=== PATIENT | female | born 1985 | race Caucasian/White ===

== ENCOUNTER 2024-02-01 10:08 | Inpatient (IN) ==
[2024-02-01] MEDS ORDERED: LIDOCAINE 1% LOCAL 20 ML VIAL INFIL PRN (10:23)
[2024-02-01] MEDS ORDERED: OXYTOCIN 30 UNITS/NSS 30 UNITS/500 ML BAG IV PRN (10:23)
--- NOTE | 2024-02-01 10:30 | Labor Progress Brief Note ---
Date of Service February 01, 2024 Subjective Contractions Q7m, loss of mucus plug x24 hours, ?ROM as patient has changed maxi pad 4 times today but it seems intermittent / unsure if just mucus with some blood tinge. at 39wk. Assessment & Plan (1) Normal labor: Plan: Admit, labs, epidural on request, expt mgmt of labor. (2) GDM (gestational diabetes mellitus): (3) resulting from in vitro fertilization, antepartum: Physical Exam Genitourinary: /+1 FHT not yet on monitor but +FM Ctx Q7 per pt palp moderate, not on toco yet. Coding Level of Care Code None Diagnoses Normal labor O80; Z37.9 GDM (gestational diabetes mellitus) O24.419 resulting from in vitro fertilization, antepartum O09.819
--- NOTE | 2024-02-01 10:45 | History & Physical Report ---
Date of Service February 01, 2024 Assessment & Plan (1) Normal labor: (2) GDM (gestational diabetes mellitus): (3) Supervision of elderly primigravida: Plan Admit to L&D Pitocin augmentation if needed monitor Category 1 Epidural when requested. GBS negative Anticipate vaginal . History of Present Illness Primary Care Provider: FILOEMNA Chu 38 y/o at 39 weeks confirmed. Here due to active labor. Complications with this include IVF, AMA, hyperthyroidism and GDM diet controlled. Has been attending OB appointments regularly. Currently taking no medications. GBS negative, Rubella Immune, BTG: B+ Contractions: every 7 min Fluid or Blood loss: blood tinged, unsure of fluid loss Movement: active FHR baseline 130, moderate variability, accelerations present, decelerations absent Lab Results OB Labs: Blood Type B Positive 07/13/23 Antibody Screen NEGATIVE 07/13/23 Hemoglobin 10.5 g/dl (12.0-16.0) L 11/24/23 Hematocrit 32.1 % (37.0-47.0) L 11/24/23 Mean Corpuscular Volume 83.5 fL (80.0-100.0) 07/13/23 Platelet Count 284 K/uL (130-400) 07/13/23 Rubella IgG Antibody Immune (Immune) 07/13/23 Rapid Plasma Reagin Nonreactive (Nonreactive) 07/13/23 Hepatitis B Surface Antigen. NON-REACTIVE (NON-REACTIVE) 07/13/23 Hepatitis C Antibody (EIA) NON-REACTIVE (NON-REACTIVE) 07/13/23 HIV (1&2) Ag and Ab Confirmation NON-REACTIVE (NON-REACTIVE) 07/13/23 Glucose 1 Hour 50 gm Load 158 mg/dl (70-130) H 08/24/23 OB Optional Labs: Chlamydia trachomatis RNA Not Detected (NotDetected) 07/13/23 Neisseria gonorrhoeae RNA Not Detected (NotDetected) 07/13/23 Thyroid Stimulating Hormone (TSH) 0.324 uIu/ml (0.300-4.500) 08/12/21 Allergies Allergy/AdvReac Type Severity Reaction Status Date / Time benzonatate Allergy hives Verified 01/31/24 15:56 [From Tessalon Perles] ciprofloxacin [From Cipro] AdvReac thrush Verified 01/31/24 15:56 Home Medications Medication Instructions Recorded Confirmed Type prenat.vits,chip,bax-lguj-tqoxf 1 tab PO DAILY 08/04/19 02/01/24 History needle (disp) 25 gauge 25 gauge x #90 ea 10/13/22 01/31/24 Rx 1" (BD PrecisionGlide Non-Sterile) coenzyme Q10 100 mg capsule 100 mg PO DAILY 10/31/22 02/01/24 History (CoQ-10) fluoxetine 10 mg capsule (Prozac) 10 mg PO DAILY #90 caps 09/04/23 02/01/24 Rx breast pump #1 ea 11/15/23 01/31/24 Rx pantoprazole 20 mg tablet,delayed 20 mg PO DAILY #90 tabs 12/06/23 02/01/24 Rx release cyanocobalamin (vitamin B-12) 1,000 mcg subcut . MONTHLY #10 mL 12/10/23 02/01/24 Rx 1,000 mcg/mL injection solution levocetirizine 5 mg tablet (Xyzal) 5 mg PO DAILY 02/01/24 02/01/24 History Patient History Medical History GERD without esophagitis History of abnormal cervical Pap smear History of thyroid cyst Surgical History History of esophagogastroduodenoscopy (EGD) History of loop electrical excision procedure (LEEP) History of placement of ear tubes S/P cholecystectomy S/P wisdom tooth extraction Family History Grandfather (Paternal) Moises's disease Myocardial infarction Prostate cancer Grandmother (Paternal) Breast cancer Family/Other Breast cancer Father Colorectal cancer Denies family history of Ovarian cancer Social History (Updated 11/13/23 @ 09:01 by KRYSTYNA Callejas) Smoking Status: Former smoker Tobacco Type: Cigarettes and E-cigarettes / Vaping Age Quit Using Tobacco: 29; Cigarettes Per Day: 1/2 ppd- quit at 29; Second Hand Exposure: No; Do You Dip or Chew Tobacco: No; Hx Alcohol Use: No Hx Substance Use: No Preferred Language: Swedish Communication Ability: Effective Visual Impairment: No Limitations Hearing Ability: Normal Rn Women Services Required: No Beliefs That Will Affect Care: None marital status: single marital status details: Sravan (40) [phone] Current Living Situation: Spouse Current Living Situation Comment: Lives at home with Boyfriend Tera and 2 dogs. current occupational status: employed current occupation: contract analyst. How many Children do You have: 0 Other Information That Helps Us Care for You: No Feels Safe at Home: Yes Safety Concerns: Feels Safe At This Time Childhood Exposure to Second-Hand Smoke: No Diet: regular Diet Comment: regular caffeine: Yes (limiting ) during the past year weight has: remained stable Dental Care, Regularly: Yes Physical Activity Frequency: 3-4 Times per Week Seatbelt Use: always Sunscreen Use: Yes Assistive Devices: None Review of Systems All systems reviewed & are unremarkable except as noted in HPI & below Physical Exam Physical Exam: General: patient resting comfortably, NAD, non-toxic in appearance, AA&O x 4, answers questions appropriately. Skin: warm, dry, intact HEENT: NC/AT, anicteric sclera, conjunctiva without injection, moist mucus membranes Heart: +S1/S2, regular, no m/r/g Lungs: equal air entry bilaterally, no rales/rhonchi/wheezes Abd: +BS, soft, NT/ND, gravid uterus Cervical: 8/100/+1, uterus mod. anterior Ext: warm, no clubbing/cyanosis or edema Neuro: nonfocal, patient AA&O x 4, speech intact, no facial droop, moving all extremities on command. Supervising Physician Co-Signing Physician Notes Resident Physician Supervision Note: I interviewed and examined the patient. Discussed with Dr. Rick Cano and agree with findings and plan as documented in the note. Any exceptions or clarifications are listed here: 38yo @ 39 0/7, spontaneous labor. 8cm on arrival. Does not desire epidural, is comfortable. FHT Cat 1 Platea Q 5 Documented By: Yissel Batista DO Resident Activity Tracking Resident Involvement: Resident Care Provided Care Provided: OB Delivery
[2024-02-01 10:57] LABS: Hematocrit (blood only) 35.4 % (37.0-47.0); Hemoglobin 11.5 g/dl (12.0-16.0); Mean Corpuscular Hemoglobin 26.1 pg (25.0-34.0); Mean Corpuscular Hgb Conc 32.5 g/dL (32.0-36.0); Mean Corpuscular Volume 80.5 fL (80.0-100.0); Mean Platelet Volume 11.2 fL (9.4-12.4); Platelet Count 221 K/uL (130-400); RDW Coefficient of Variation 15.7 % (11.5-14.5); RDW Standard Deviation 45.6 fL (36.4-46.3); White Blood Count 13.79 K/ul (4.8-10.8)
--- NOTE | 2024-02-01 14:23 | Anesthesiology Consultation ---
Date of Service February 01, 2024 Assessment & Plan Chart Review Chart Review: Acceptable Risk for Surgery and Patient NOT seen in Pre Admission Testing Consults Requested none ASA ASA2 Proposed Anesthesia Anesthesia Type: Labor Epidural and CSE History Height/Weight Height: 5 ft 6 in Weight: 106.141 kg Allergies Allergy/AdvReac Type Severity Reaction Status Date / Time benzonatate Allergy hives Verified 01/31/24 15:56 [From Tessalon Perles] ciprofloxacin [From Cipro] AdvReac thrush Verified 01/31/24 15:56 Medications Home Medications Medication Instructions Recorded Confirmed Last Taken prenat.vits,chip,def-sivr-jnldg 1 tab PO DAILY 08/04/19 02/01/24 02/01/24 needle (disp) 25 gauge 25 gauge x #90 ea 10/13/22 01/31/24 Unknown 1" (BD PrecisionGlide Non-Sterile) coenzyme Q10 100 mg capsule 100 mg PO DAILY 10/31/22 02/01/24 02/01/24 (CoQ-10) fluoxetine 10 mg capsule (Prozac) 10 mg PO DAILY #90 caps 09/04/23 02/01/24 02/01/24 breast pump #1 ea 11/15/23 01/31/24 Unknown pantoprazole 20 mg tablet,delayed 20 mg PO DAILY #90 tabs 12/06/23 02/01/24 02/01/24 release cyanocobalamin (vitamin B-12) 1,000 mcg subcut . MONTHLY #10 mL 12/10/23 02/01/24 Unknown 1,000 mcg/mL injection solution levocetirizine 5 mg tablet (Xyzal) 5 mg PO DAILY 02/01/24 02/01/24 02/01/24 Past Medical History Medical History GERD without esophagitis History of abnormal cervical Pap smear History of thyroid cyst morbid obesity Exercise / Class Metabolic Activity II 4-5 Yardwork/Stairs/Walk up hill Past Family History Family History Grandfather (Paternal) Moises's disease Myocardial infarction Prostate cancer Grandmother (Paternal) Breast cancer Family/Other Breast cancer Father Colorectal cancer Denies family history of Ovarian cancer Past Surgical History Surgical History History of esophagogastroduodenoscopy (EGD) History of loop electrical excision procedure (LEEP) History of placement of ear tubes S/P cholecystectomy S/P wisdom tooth extraction Past Anesthesia History No Hx of Anesthesia Complications and No Family Hx of Anesthesia Complications History of PONV No Hx of PONV and No Hx of Motion Sickness Social History Smoking Status: Former smoker tobacco type: e-cigarettes Smoking cigarettes per day: 1/2 ppd- quit at 29 Do You Dip or Chew Tobacco: No Hx Alcohol Use: No Hx Substance Use: No Physical Exam Vital Signs Last Vital Signs Temp 37.2 C 02/01/24 11:00 Pulse 80 02/01/24 14:19 Resp 20 02/01/24 13:03 BP 124/70 02/01/24 11:03 Pulse Ox 99 02/01/24 14:19 Testing Laboratory Results 02/01/24 10:37
[2024-02-01] MEDS: fentaNYL citrate PF 100 MCG/2 ML VIAL ONE (15:06)
[2024-02-01] MEDS: BUPIVACAINE 0.25% PF 30 ML VIAL ONE (15:07)
[2024-02-01] MEDS: LIDOCAINE 2%/EPINEPHRINE 1:200,000 20 ML PF ONE (15:15)
[2024-02-01] MEDS: fentANYL 2 MCG/ML BUPIVacaine 0.125%-NSS 100ML BAG ONE (15:16)
[2024-02-01] MEDS ORDERED: NALOXONE HCL 0.4 MG/1 ML VIAL/CARP IV PRN (15:22)
[2024-02-01] MEDS ORDERED: BUPIVACAINE 0.25% PF 30 ML VIAL EPI PRN (15:22)
[2024-02-01] MEDS ORDERED: PROMETHAZINE HCL 6.25 MG in SODIUM CHLORIDE 0.9% 50 ML IV PRN (15:22)
[2024-02-01] MEDS ORDERED: ePHEDrine sulfate 50 MG/ML AMP IV PRN (15:22)
[2024-02-01] MEDS ORDERED: NALBUPHINE HCL 5 MG in SYRINGE 0 ML IV PRN (15:22)
[2024-02-01] MEDS ORDERED: ONDANSETRON INJ 2 MG/ML 2 ML VIAL IV PRN (15:22)
[2024-02-01] MEDS ORDERED: fentaNYL citrate PF 100 MCG/2 ML VIAL EPI PRN (15:22)
[2024-02-01] MEDS ORDERED: fentANYL 2 MCG/ML BUPIVacaine 0.125%-NSS 100ML BAG EPI PRN (15:22)
[2024-02-01] MEDS ORDERED: diphenhydrAMINE 50 MG/ML VIAL IV PRN (15:22)
[2024-02-01] MEDS ORDERED: LIDOCAINE 2% MPF LOCAL 5 ML VIAL EPI PRN (15:22)
[2024-02-01] MEDS ORDERED: NALOXONE HCL 1 MG in SODIUM CHLORIDE 0.9% 1,000 ML IV PRN (15:22)
[2024-02-01] MEDS ORDERED: SODIUM CHLORIDE 0.9% PF INJ 10 ML VIAL EPI PRN (15:22)
[2024-02-01] MEDS ORDERED: ROPIVACAINE 0.5% PF 5 MG/ML 20 ML VIAL EPI PRN (15:22)
--- NOTE | 2024-02-01 15:34 | Labor Progress Brief Note ---
Date of Service February 01, 2024 Subjective Patient progressed to complete cervical dilation, attempted to push, then felt large amount of pressure and desired epidural. She has now rec'd epidural; more comfortable. FHT 140, mod immanuel, +accels, one 2 min deceleration - not recurrent. Ctx Q 2 Will labor down, when she feels urge to push will plan to begin pushing again. Assessment & Plan Admission and Anticipated Discharge Date Admission Date: February 01, 2024 Results & Data Vital Signs (Past 12 Hours) Vital Signs Temp Pulse Resp BP Pulse Ox 02/01/24 15:29 73 100 02/01/24 15:28 75 113/58 L 02/01/24 15:24 73 100 02/01/24 15:22 81 118/56 L 02/01/24 15:20 76 115/56 L 02/01/24 15:19 100 02/01/24 15:19 81 02/01/24 15:19 77 112/55 L 02/01/24 15:17 76 90/48 L 02/01/24 15:15 82 02/01/24 15:15 94/50 L 02/01/24 15:15 100 H 89/50 L 02/01/24 15:14 80 100 02/01/24 15:13 85 99/46 L 02/01/24 15:11 87 109/56 L 02/01/24 15:09 89 97 02/01/24 15:08 80 129/61 02/01/24 15:06 86 129/59 L 02/01/24 15:04 88 125/64 98 02/01/24 15:02 78 124/58 L 02/01/24 15:00 88 128/60 02/01/24 14:59 100 H 99 02/01/24 14:58 88 136/61 02/01/24 14:54 109 H 87 L 02/01/24 14:49 82 99 02/01/24 14:46 95 H 88 L 02/01/24 14:44 79 97 02/01/24 14:39 88 99 02/01/24 14:34 107 H 98 02/01/24 14:29 75 97 02/01/24 14:24 75 97 02/01/24 14:19 80 99 02/01/24 14:14 83 99 02/01/24 13:03 20 02/01/24 11:03 80 124/70 02/01/24 11:00 37.2 C 80 16 124/70 Coding Level of Care Code None
[2024-02-01] MEDS: SODIUM CHLORIDE 0.9% PF INJ 10 ML VIAL ONE (18:29)
[2024-02-01] MEDS: ePHEDrine sulfate 50 MG/ML AMP ONE (18:29)
[2024-02-01] MEDS: SODIUM CHLORIDE 0.9% PF INJ 10 ML VIAL EPI STA (18:31)
[2024-02-01] MEDS: BUPIVACAINE 0.25% PF 30 ML VIAL EPI STA (18:31)
[2024-02-01] MEDS: LIDOCAINE 2%/EPINEPHRINE 1:200,000 20 ML PF EPI STA (18:31)
[2024-02-01] MEDS: LACTATED RINGER'S 1,000 ML IV PRN (18:47)
[2024-02-01] MEDS: fentaNYL citrate PF 100 MCG/2 ML VIAL EPI STA (19:05)
--- NOTE | 2024-02-01 19:29 | Labor Progress Brief Note ---
Date of Service February 01, 2024 Subjective Comfortable with epidural; got a much-needed nap and feels refreshed and able to push now. Not feeling ctx. Assessment & Plan (1) Normal labor: Plan: Augment with pitocin now. Second stage can start but will be more effective with some augmentation. Admission and Anticipated Discharge Date Admission Date: February 01, 2024 Physical Exam Genitourinary: 10/100/+2 Clear LOF [place] not tracing well; palpation correlates mild to moderate ctx with occasional subtle bump, likely indicating ctx are present, Q3-4, but not strong. Results & Data Vital Signs (Past 12 Hours) Vital Signs Temp Pulse Resp BP Pulse Ox 02/01/24 19:24 127 H 98 02/01/24 19:19 88 125/57 L 100 02/01/24 19:14 92 H 100 02/01/24 19:12 18 02/01/24 19:12 99.9 F H 18 02/01/24 19:09 87 100 02/01/24 19:04 99 02/01/24 19:04 93 H 02/01/24 19:04 95 H 132/63 02/01/24 18:59 88 100 02/01/24 18:54 99 H 18 99 02/01/24 18:49 94 H 131/59 L 99 02/01/24 18:44 95 H 99 02/01/24 18:39 84 99 02/01/24 18:35 96 H 142/70 H 02/01/24 18:34 92 H 100 02/01/24 18:29 92 H 99 02/01/24 18:24 86 99 02/01/24 18:19 82 126/65 100 02/01/24 18:14 93 H 100 02/01/24 18:09 92 H 100 02/01/24 18:04 89 138/75 100 02/01/24 17:59 93 H 99 02/01/24 17:54 18 100 02/01/24 17:54 86 02/01/24 17:54 86 92 02/01/24 17:50 83 126/61 02/01/24 17:49 86 100 02/01/24 17:44 83 100 02/01/24 17:39 93 H 99 02/01/24 17:35 88 127/69 02/01/24 17:34 88 100 02/01/24 17:30 100 H 92 02/01/24 17:29 89 99 02/01/24 17:24 90 100 02/01/24 17:21 85 131/72 02/01/24 17:19 82 100 02/01/24 17:14 83 100 02/01/24 17:09 82 99 02/01/24 17:04 99 02/01/24 17:04 93 H 02/01/24 17:04 90 127/58 L 02/01/24 17:00 97.5 F L 82 113/77 02/01/24 16:59 86 100 02/01/24 16:54 92 H 18 100 02/01/24 16:53 95 H 128/60 02/01/24 16:49 103 H 135/60 100 02/01/24 16:44 92 H 100 02/01/24 16:43 93 H 116/69 02/01/24 16:39 85 18 99 02/01/24 16:38 81 113/55 L 02/01/24 16:34 81 98 02/01/24 16:33 88 106/56 L 02/01/24 16:29 80 98 02/01/24 16:28 77 103/55 L 02/01/24 16:24 98 02/01/24 16:24 76 02/01/24 16:24 81 18 108/54 L 02/01/24 16:19 84 98 02/01/24 16:18 87 108/56 L 02/01/24 16:14 77 98 02/01/24 16:13 85 111/54 L 02/01/24 16:09 79 100 02/01/24 16:08 73 18 113/56 L 02/01/24 16:04 99 02/01/24 16:04 77 02/01/24 16:04 75 115/59 L 02/01/24 15:59 100 02/01/24 15:59 78 02/01/24 15:59 75 120/55 L 02/01/24 15:54 77 100 02/01/24 15:53 75 18 118/66 02/01/24 15:49 82 20 116/55 L 100 02/01/24 15:44 81 18 115/53 L 100 02/01/24 15:39 79 18 100/52 L 99 02/01/24 15:34 82 100 02/01/24 15:33 80 18 112/55 L 02/01/24 15:29 73 100 02/01/24 15:28 75 113/58 L 02/01/24 15:24 73 100 02/01/24 15:22 81 118/56 L 02/01/24 15:20 76 115/56 L 02/01/24 15:19 100 02/01/24 15:19 81 02/01/24 15:19 77 112/55 L 02/01/24 15:17 76 90/48 L 02/01/24 15:15 82 02/01/24 15:15 94/50 L 02/01/24 15:15 100 H 89/50 L 02/01/24 15:14 80 100 02/01/24 15:13 85 99/46 L 02/01/24 15:11 87 109/56 L 02/01/24 15:09 89 97 02/01/24 15:08 80 129/61 02/01/24 15:06 86 129/59 L 02/01/24 15:04 88 125/64 98 02/01/24 15:02 78 124/58 L 02/01/24 15:00 98.1 F 88 128/60 02/01/24 14:59 100 H 99 02/01/24 14:58 88 136/61 02/01/24 14:54 109 H 87 L 02/01/24 14:49 82 99 02/01/24 14:46 95 H 88 L 02/01/24 14:44 79 97 02/01/24 14:39 88 99 02/01/24 14:34 107 H 98 02/01/24 14:29 75 97 02/01/24 14:24 75 97 02/01/24 14:19 80 99 02/01/24 14:14 83 99 02/01/24 13:03 20 02/01/24 11:03 80 124/70 02/01/24 11:00 99.0 F 80 16 124/70 Coding Level of Care Code None Diagnoses Normal labor O80; Z37.9
[2024-02-01] MEDS: OXYTOCIN 30 UNITS/NSS 30 UNITS/500 ML BAG IV PRN (19:46)
--- NOTE | 2024-02-01 23:47 | Labor Progress Brief Note ---
Date of Service February 01, 2024 Subjective Patient pushing for several hours. Some descent, but marked molding and I'm unconvinced there is as much descent as there is pointing-forward of the scalp. Further, even during pushes it is easy to displace the head, and copious amniotic fluid is being extruded during pushes. Mom becoming exhausted and unsure how much longer she can push well. FHT 160 mod immanuel no acc +decels with pushes c/w 2nd stage. Discussion held with mom/FOB/patient's mother at bedside. This is an IVF with which the patient wishes to take no extraordinary risks in order to have a vaginal delivery. She is GDM with a larger AC than EFW percentile, and therefore I have reservations about the safety of operative vaginal delivery, as there is elevated risk of dystocia. We reviewed possibilities including continued pushing for some defined time, moving directly to , or attempt of OVD though this was not recommended above the other options. Patient clearly prefers to move to without any further pushing. Consent completed line by line with patient's mom and FOB present. All questions answered. Second surgeon called to assist. Anesthesia and nursery team notified. Assessment & Plan Admission and Anticipated Discharge Date Admission Date: February 01, 2024 Results & Data Vital Signs (Past 12 Hours) Vital Signs Temp Pulse Resp BP Pulse Ox 02/01/24 23:39 104 H 98 02/01/24 23:34 102 H 141/76 H 98 02/01/24 23:29 89 99 02/01/24 23:24 94 H 99 02/01/24 23:20 99 H 133/85 02/01/24 23:19 102 H 99 02/01/24 23:14 100 H 94 02/01/24 23:09 86 98 02/01/24 23:05 100 H 134/62 91 02/01/24 23:04 104 H 97 02/01/24 22:59 106 H 93 02/01/24 22:54 84 98 02/01/24 22:53 102 H 91 02/01/24 22:50 104 H 170/89 H 02/01/24 22:49 106 H 98 02/01/24 22:48 99.5 F 02/01/24 22:47 106 H 89 L 02/01/24 22:44 80 98 02/01/24 22:39 105 H 87 L 02/01/24 22:35 74 120/59 L 02/01/24 22:34 78 98 02/01/24 22:29 80 99 02/01/24 22:24 115 H 92 02/01/24 22:20 78 115/57 L 02/01/24 22:19 96 H 92 02/01/24 22:14 99 02/01/24 22:14 86 02/01/24 22:14 100 H 92 02/01/24 22:09 80 99 02/01/24 22:07 107 H 88 L 02/01/24 22:04 87 120/60 98 02/01/24 21:59 95 H 98 02/01/24 21:57 105 H 92 02/01/24 21:54 83 99 02/01/24 21:51 89 02/01/24 21:51 103 H 143/64 H 93 02/01/24 21:49 90 100 02/01/24 21:44 96 H 100 02/01/24 21:39 83 100 02/01/24 21:36 109 H 92 02/01/24 21:34 102 H 139/65 98 02/01/24 21:29 88 100 02/01/24 21:28 99 H 89 L 02/01/24 21:24 92 H 100 02/01/24 21:22 116 H 82 L 02/01/24 21:19 100 02/01/24 21:19 101 H 02/01/24 21:19 93 H 142/70 H 02/01/24 21:14 101 H 99 02/01/24 21:10 108 H 90 02/01/24 21:09 108 H 97 02/01/24 21:05 93 H 134/66 02/01/24 21:04 125 H 100 02/01/24 21:00 114 H 89 L 02/01/24 20:59 107 H 99 02/01/24 20:54 116 H 92 02/01/24 20:49 86 L 02/01/24 20:49 94 H 02/01/24 20:49 92 H 90 02/01/24 20:44 89 99 02/01/24 20:43 122 H 91 02/01/24 20:39 102 H 99 02/01/24 20:36 108 H 131/69 02/01/24 20:34 109 H 100 02/01/24 20:29 99 H 99 02/01/24 20:24 107 H 99 02/01/24 20:21 86 135/63 02/01/24 20:19 99 H 99 02/01/24 20:14 91 H 99 02/01/24 20:09 98 H 100 02/01/24 20:05 93 H 170/71 H 02/01/24 20:04 105 H 98 02/01/24 20:03 118 H 93 02/01/24 19:59 103 H 100 02/01/24 19:54 119 H 100 02/01/24 19:53 98 H 91 02/01/24 19:51 100 H 145/82 H 02/01/24 19:49 88 100 02/01/24 19:44 91 H 99 02/01/24 19:39 102 H 100 02/01/24 19:34 92 H 127/62 100 02/01/24 19:29 83 100 02/01/24 19:24 127 H 98 02/01/24 19:19 88 125/57 L 100 02/01/24 19:14 92 H 100 02/01/24 19:12 18 02/01/24 19:12 99.9 F H 18 02/01/24 19:09 87 100 02/01/24 19:04 99 02/01/24 19:04 93 H 02/01/24 19:04 95 H 132/63 02/01/24 18:59 88 100 02/01/24 18:54 99 H 18 99 02/01/24 18:49 94 H 131/59 L 99 02/01/24 18:44 95 H 99 02/01/24 18:39 84 99 02/01/24 18:35 96 H 142/70 H 02/01/24 18:34 92 H 100 02/01/24 18:29 92 H 99 02/01/24 18:24 86 99 02/01/24 18:19 82 126/65 100 02/01/24 18:14 93 H 100 02/01/24 18:09 92 H 100 02/01/24 18:04 89 138/75 100 02/01/24 17:59 93 H 99 02/01/24 17:54 18 100 02/01/24 17:54 86 02/01/24 17:54 86 92 02/01/24 17:50 83 126/61 02/01/24 17:49 86 100 02/01/24 17:44 83 100 02/01/24 17:39 93 H 99 02/01/24 17:35 88 127/69 02/01/24 17:34 88 100 02/01/24 17:30 100 H 92 02/01/24 17:29 89 99 02/01/24 17:24 90 100 02/01/24 17:21 85 131/72 02/01/24 17:19 82 100 02/01/24 17:14 83 100 02/01/24 17:09 82 99 02/01/24 17:04 99 02/01/24 17:04 93 H 02/01/24 17:04 90 127/58 L 02/01/24 17:00 97.5 F L 82 113/77 02/01/24 16:59 86 100 02/01/24 16:54 92 H 18 100 02/01/24 16:53 95 H 128/60 02/01/24 16:49 103 H 135/60 100 02/01/24 16:44 92 H 100 02/01/24 16:43 93 H 116/69 02/01/24 16:39 85 18 99 02/01/24 16:38 81 113/55 L 02/01/24 16:34 81 98 02/01/24 16:33 88 106/56 L 02/01/24 16:29 80 98 02/01/24 16:28 77 103/55 L 02/01/24 16:24 98 02/01/24 16:24 76 02/01/24 16:24 81 18 108/54 L 02/01/24 16:19 84 98 02/01/24 16:18 87 108/56 L 02/01/24 16:14 77 98 02/01/24 16:13 85 111/54 L 02/01/24 16:09 79 100 02/01/24 16:08 73 18 113/56 L 02/01/24 16:04 99 02/01/24 16:04 77 02/01/24 16:04 75 115/59 L 02/01/24 15:59 100 02/01/24 15:59 78 02/01/24 15:59 75 120/55 L 02/01/24 15:54 77 100 02/01/24 15:53 75 18 118/66 02/01/24 15:49 82 20 116/55 L 100 02/01/24 15:44 81 18 115/53 L 100 02/01/24 15:39 79 18 100/52 L 99 02/01/24 15:34 82 100 02/01/24 15:33 80 18 112/55 L 02/01/24 15:29 73 100 02/01/24 15:28 75 113/58 L 02/01/24 15:24 73 100 02/01/24 15:22 81 118/56 L 02/01/24 15:20 76 115/56 L 02/01/24 15:19 100 02/01/24 15:19 81 02/01/24 15:19 77 112/55 L 02/01/24 15:17 76 90/48 L 02/01/24 15:15 82 02/01/24 15:15 94/50 L 02/01/24 15:15 100 H 89/50 L 02/01/24 15:14 80 100 02/01/24 15:13 85 99/46 L 02/01/24 15:11 87 109/56 L 02/01/24 15:09 89 97 02/01/24 15:08 80 129/61 02/01/24 15:06 86 129/59 L 02/01/24 15:04 88 125/64 98 02/01/24 15:02 78 124/58 L 02/01/24 15:00 98.1 F 88 128/60 02/01/24 14:59 100 H 99 02/01/24 14:58 88 136/61 02/01/24 14:54 109 H 87 L 02/01/24 14:49 82 99 02/01/24 14:46 95 H 88 L 02/01/24 14:44 79 97 02/01/24 14:39 88 99 02/01/24 14:34 107 H 98 02/01/24 14:29 75 97 02/01/24 14:24 75 97 02/01/24 14:19 80 99 02/01/24 14:14 83 99 02/01/24 13:03 20 Coding Level of Care Code None
[2024-02-01] MEDS ORDERED: LIDOCAINE 2%/EPINEPHRINE 1:200,000 20 ML PF ONE (23:51)
[2024-02-01] MEDS ORDERED: KETOROLAC 30 MG/ML VIAL ONE (23:51)
[2024-02-01] MEDS ORDERED: OXYTOCIN 10 UNITS/ML VIAL ONE (23:51)
[2024-02-01] MEDS ORDERED: ONDANSETRON INJ 2 MG/ML 2 ML VIAL ONE (23:51)
[2024-02-02] MEDS: AZITHROMYCIN 500 MG in DEXTROSE 5% 250 ML IV ONE (00:07)
[2024-02-02] MEDS: CITRIC ACID/SODIUM CITRATE 15 ML UDC PO SCH (00:07)
[2024-02-02] MEDS: LACTATED RINGER'S 1,000 ML IV SCH ×2 (00:34→06:45)
[2024-02-02] MEDS: ceFAZolin 3000MG 3,000 MG/72.5 ML BAG IV ONE ×2 (00:34→19:22)
[2024-02-02] MEDS ORDERED: MoRPHine SULFATE PF 1 MG/ML 10 ML AMP/VIAL ONE (00:46)
[2024-02-02] MEDS ORDERED: LACTATED RINGER'S 500 ML IV PRN (00:53)
[2024-02-02] MEDS ORDERED: ONDANSETRON INJ 2 MG/ML 2 ML VIAL IV PRN ×2 (00:53→18:53)
[2024-02-02] MEDS ORDERED: ACETAMINOPHEN 1,000 MG/100 ML VIAL IV PRN (00:53)
[2024-02-02] MEDS ORDERED: NALBUPHINE HCL 5 MG in SYRINGE 0 ML IV PRN (00:53)
[2024-02-02] MEDS ORDERED: PROMETHAZINE HCL 6.25 MG in SODIUM CHLORIDE 0.9% 50 ML IV PRN (00:53)
[2024-02-02] MEDS ORDERED: NALOXONE HCL 1 MG in SODIUM CHLORIDE 0.9% 1,000 ML IV PRN (00:53)
[2024-02-02] MEDS ORDERED: NALOXONE HCL 0.4 MG/1 ML VIAL/CARP IV PRN (00:53)
[2024-02-02] MEDS ORDERED: HYDROmorphone INJ 0.5 MG/0.5 ML SYR IV PRN (00:53)
[2024-02-02] MEDS ORDERED: NALOXONE HCL 0.08 MG in SYRINGE 1.8 ML IV PRN (00:53)
[2024-02-02] MEDS ORDERED: ePHEDrine sulfate 50 MG/ML AMP IV PRN (00:53)
[2024-02-02] MEDS ORDERED: DC INTRASPINAL MORPHINE SCH (01:00)
[2024-02-02] MEDS ORDERED: NO NARCOTICS OR SEDATIVES SCH (01:00)
[2024-02-02] MEDS ORDERED: PHENYLEPHRINE 100MCG/ML 10ML SYR IV ONE ×2 (01:05→04:52)
[2024-02-02] MEDS ORDERED: ePHEDrine sulfate 50 MG/5 ML SYR ONE (01:05)
[2024-02-02] MEDS ORDERED: METHYLENE BLUE 0.5% 10 ML VIAL ONE (01:09)
[2024-02-02] MEDS ORDERED: BENZOCAINE 20% SPRY 85 APPLN/85 GM CAN EXT PRN (01:41)
[2024-02-02] MEDS ORDERED: MAGNESIUM HYDROXIDE SUSP 30 ML UDC PO PRN (01:41)
[2024-02-02] MEDS ORDERED: SENNA 8.6 MG TAB PO PRN (01:41)
[2024-02-02] MEDS ORDERED: HYDROCORTISONE ACETATE 25 MG SUPP PR PRN (01:41)
--- NOTE | 2024-02-02 01:46 | Operative Report ---
PG Post Operative Report Pre & Post Diagnosis Operation Date: 02/02/24 00:10 Pre-Op Diagnosis: 1. Intrauterine pregnacy at term 2. Gestational Diabetes 3. IVF 4. Failure to descend Post-Op Diagnosis: 1. Intrauterine pregnacy at term 2. Gestational Diabetes 3. IVF 4. Failure to descend I identified the patient and participated in the time-out.: Yes Procedure Operation Date: 02/02/24 00:10 Actual Procedures Primary Low Transverse Section with T-incision and L cervical extension, repaired in 2 layers Surgeon Thea Barrera MD Spirits Model Lynne Estimated Blood Loss 600 Findings Consistent with Post-Op Diagnosis Specimens Placenta, Cord blood Drains Shirley Anesthesia Type L&D Only Epidural Exists Complications none Disposition Accompanied Patient To Recovery: Yes Disposition: L&D Description of Procedure The patient was placed operating table in the supine position with a leftward tilt. She was prepped and draped in standard sterile fashion. The anesthetic was tested and found to be adequate. A time-out was held, identifying correct patient, procedure, positioning and preoperative antibiotics. There were no concerns. A Pfannenstiel skin incision was made with a knife and taken down to the underlying layer of fascia. The fascia was incised in the midline with the knife and taken out laterally with scissors. The superior edge of the fascial incision was grasped, elevated and dissected off the underlying rectus both superiorly and inferiorly. The muscles were bluntly in the midline. The peritoneum was entered bluntly. The incision was then stretched. An Gonzalo retractor was placed. The bladder retractor was placed. The vesicouterine peritoneum was identified, entered with scissors and taken out laterally with scissors. The bladder flap was created digitally. A hysterotomy incision was created transversely in the lower uterine segment, final entry being accomplished in a blunt manner with the long distance billing operator's fingers. Clear amniotic fluid was encountered. The long distance billing operator's hand was used to elevate the head to the hysterotomy. The head was initially very difficult to deliver, and uterine contraction occurring during this attempt further increased the challenge of elevating the head through the hysterotomy. A bandage scissor was used to create a T-incision vertically in the midline. The head then was able to be elevated and was delivered using mild fundal pressure, and the shoulders and body followed without difficulty. The cord was clamped and cut and the was then handed off to the awaiting feed mill operator. Cord blood was obtained. The placenta was Manually extracted. The uterus was exteriorized and cleared of all clot and debris with moistened laparotomy sponges. The hysterotomy incision was explored and all apices were identified with Allis clamps. The L cervical extension was identified and repaired first. The vertical extension was repaired next. The transverse hysterotomy was then repaired in two layers, the first in a running locked layer, the second in an imbricating layer. The ovaries and tubes were seen to be normal bilaterally. There was a fibroid in the anterior wall of the uterus near the base of, and distorting, the L round ligament. The uterus was gently replaced in the abdomen, and the gutters were cleared of clot and debris. Methylene-blue stained sterile saline was used to backfill the bladder, which was seen to fill normally without leakage. A final inspection of the hysterotomy revealed good hemostasis. The rectus muscles were allowed to reapproximate naturally. The fascia was then reapproximated with 1 Vicryl in a running nonlocked manner. The fascia was examined and found to be free of defect following closure. The subcutaneous tissue was copiously irrigated and reapproximated with 0-chromic, then the skin edges were closed with 4-0 monocryl in a subcuticular fashion. A dermabond dressing was applied. The shirley was found to be draining [id number] urine at completion of the procedure. I attest to the content of the Intraoperative Record and any orders documented therein. Any exceptions are noted below. I attest to the content of the Intraoperative Record and any orders documented therein. Any exceptions are noted below. OB Procedure Charges 10530
--- NOTE | 2024-02-02 02:22 | Anesthesiology Progress Note ---
Date of Service February 02, 2024 Anesthesia Post Procedure Vital Signs Vital Signs: Temp Pulse Resp BP Pulse Ox 02/02/24 02:18 102 H 99 02/02/24 02:15 98 H 98/53 L 02/02/24 02:13 104 H 100 02/02/24 02:08 100 02/02/24 02:08 99 H 02/02/24 02:08 102 H 103/57 L 02/02/24 02:03 97 H 100 02/02/24 01:58 99 H 105/55 L 99 02/02/24 01:55 18 02/02/24 01:53 101 H 99 02/02/24 01:48 99 02/02/24 01:48 103 H 02/02/24 01:48 102 H 107/53 L 02/02/24 01:45 99.0 F 18 02/02/24 01:43 105 H 107/50 L 99 02/02/24 01:38 101 H 100 02/02/24 01:35 101 H 105/51 L 02/02/24 01:33 103 H 100 02/02/24 00:14 101 H 97 02/02/24 00:09 103 H 97 02/02/24 00:04 97 H 143/78 H 97 02/01/24 23:59 100 H 97 02/01/24 23:54 93 H 97 02/01/24 23:49 100 H 99 02/01/24 23:44 96 H 99 02/01/24 23:39 104 H 98 02/01/24 23:34 102 H 141/76 H 98 02/01/24 23:29 89 99 02/01/24 23:24 94 H 99 02/01/24 23:20 99 H 133/85 02/01/24 23:19 102 H 99 02/01/24 23:14 100 H 94 02/01/24 23:09 86 98 02/01/24 23:05 100 H 134/62 91 02/01/24 23:04 104 H 97 02/01/24 22:59 106 H 93 02/01/24 22:54 84 98 02/01/24 22:53 102 H 91 02/01/24 22:50 104 H 170/89 H 02/01/24 22:49 106 H 98 02/01/24 22:48 99.5 F 02/01/24 22:47 106 H 89 L 02/01/24 22:44 80 98 02/01/24 22:39 105 H 87 L 02/01/24 22:35 74 120/59 L 02/01/24 22:34 78 98 02/01/24 22:29 80 99 02/01/24 22:24 115 H 92 02/01/24 22:20 78 115/57 L 02/01/24 22:19 96 H 92 02/01/24 22:14 99 02/01/24 22:14 86 02/01/24 22:14 100 H 92 02/01/24 22:09 80 99 02/01/24 22:07 107 H 88 L 02/01/24 22:04 87 120/60 98 02/01/24 21:59 95 H 98 02/01/24 21:57 105 H 92 02/01/24 21:54 83 99 02/01/24 21:51 89 02/01/24 21:51 103 H 143/64 H 93 02/01/24 21:49 90 100 02/01/24 21:44 96 H 100 02/01/24 21:39 83 100 02/01/24 21:36 109 H 92 02/01/24 21:34 102 H 139/65 98 02/01/24 21:29 88 100 02/01/24 21:28 99 H 89 L 02/01/24 21:24 92 H 100 02/01/24 21:22 116 H 82 L 02/01/24 21:19 100 02/01/24 21:19 101 H 02/01/24 21:19 93 H 142/70 H 02/01/24 21:14 101 H 99 02/01/24 21:10 108 H 90 02/01/24 21:09 108 H 97 02/01/24 21:05 93 H 134/66 02/01/24 21:04 125 H 100 02/01/24 21:00 114 H 89 L 02/01/24 20:59 107 H 99 02/01/24 20:54 116 H 92 02/01/24 20:49 86 L 02/01/24 20:49 94 H 02/01/24 20:49 92 H 90 02/01/24 20:44 89 99 02/01/24 20:43 122 H 91 02/01/24 20:39 102 H 99 02/01/24 20:36 108 H 131/69 02/01/24 20:34 109 H 100 02/01/24 20:29 99 H 99 02/01/24 20:24 107 H 99 02/01/24 20:21 86 135/63 02/01/24 20:19 99 H 99 02/01/24 20:14 91 H 99 02/01/24 20:09 98 H 100 02/01/24 20:05 93 H 170/71 H 02/01/24 20:04 105 H 98 02/01/24 20:03 118 H 93 02/01/24 19:59 103 H 100 02/01/24 19:54 119 H 100 02/01/24 19:53 98 H 91 02/01/24 19:51 100 H 145/82 H 02/01/24 19:49 88 100 02/01/24 19:44 91 H 99 02/01/24 19:39 102 H 100 02/01/24 19:34 92 H 127/62 100 02/01/24 19:29 83 100 02/01/24 19:24 127 H 98 02/01/24 19:19 88 125/57 L 100 02/01/24 19:14 92 H 100 02/01/24 19:12 18 02/01/24 19:12 99.9 F H 18 02/01/24 19:09 87 100 02/01/24 19:04 99 02/01/24 19:04 93 H 02/01/24 19:04 95 H 132/63 02/01/24 18:59 88 100 02/01/24 18:54 99 H 18 99 02/01/24 18:49 94 H 131/59 L 99 02/01/24 18:44 95 H 99 02/01/24 18:39 84 99 02/01/24 18:35 96 H 142/70 H 02/01/24 18:34 92 H 100 02/01/24 18:29 92 H 99 02/01/24 18:24 86 99 02/01/24 18:19 82 126/65 100 02/01/24 18:14 93 H 100 02/01/24 18:09 92 H 100 02/01/24 18:04 89 138/75 100 02/01/24 17:59 93 H 99 02/01/24 17:54 18 100 02/01/24 17:54 86 02/01/24 17:54 86 92 02/01/24 17:50 83 126/61 02/01/24 17:49 86 100 02/01/24 17:44 83 100 02/01/24 17:39 93 H 99 02/01/24 17:35 88 127/69 02/01/24 17:34 88 100 02/01/24 17:30 100 H 92 02/01/24 17:29 89 99 02/01/24 17:24 90 100 02/01/24 17:21 85 131/72 02/01/24 17:19 82 100 02/01/24 17:14 83 100 02/01/24 17:09 82 99 02/01/24 17:04 99 02/01/24 17:04 93 H 02/01/24 17:04 90 127/58 L 02/01/24 17:00 97.5 F L 82 113/77 02/01/24 16:59 86 100 02/01/24 16:54 92 H 18 100 02/01/24 16:53 95 H 128/60 02/01/24 16:49 103 H 135/60 100 02/01/24 16:44 92 H 100 02/01/24 16:43 93 H 116/69 02/01/24 16:39 85 18 99 02/01/24 16:38 81 113/55 L 02/01/24 16:34 81 98 02/01/24 16:33 88 106/56 L 02/01/24 16:29 80 98 02/01/24 16:28 77 103/55 L 02/01/24 16:24 98 02/01/24 16:24 76 02/01/24 16:24 81 18 108/54 L 02/01/24 16:19 84 98 02/01/24 16:18 87 108/56 L 02/01/24 16:14 77 98 02/01/24 16:13 85 111/54 L 02/01/24 16:09 79 100 02/01/24 16:08 73 18 113/56 L 02/01/24 16:04 99 02/01/24 16:04 77 02/01/24 16:04 75 115/59 L 02/01/24 15:59 100 02/01/24 15:59 78 02/01/24 15:59 75 120/55 L 02/01/24 15:54 77 100 02/01/24 15:53 75 18 118/66 02/01/24 15:49 82 20 116/55 L 100 02/01/24 15:44 81 18 115/53 L 100 02/01/24 15:39 79 18 100/52 L 99 02/01/24 15:34 82 100 02/01/24 15:33 80 18 112/55 L 02/01/24 15:29 73 100 02/01/24 15:28 75 113/58 L 02/01/24 15:24 73 100 02/01/24 15:22 81 118/56 L 02/01/24 15:20 76 115/56 L 02/01/24 15:19 100 02/01/24 15:19 81 02/01/24 15:19 77 112/55 L 02/01/24 15:17 76 90/48 L 02/01/24 15:15 82 02/01/24 15:15 94/50 L 02/01/24 15:15 100 H 89/50 L 02/01/24 15:14 80 100 02/01/24 15:13 85 99/46 L 02/01/24 15:11 87 109/56 L 02/01/24 15:09 89 97 02/01/24 15:08 80 129/61 02/01/24 15:06 86 129/59 L 02/01/24 15:04 88 125/64 98 02/01/24 15:02 78 124/58 L 02/01/24 15:00 98.1 F 88 128/60 02/01/24 14:59 100 H 99 02/01/24 14:58 88 136/61 02/01/24 14:54 109 H 87 L 02/01/24 14:49 82 99 02/01/24 14:46 95 H 88 L 02/01/24 14:44 79 97 02/01/24 14:39 88 99 02/01/24 14:34 107 H 98 02/01/24 14:29 75 97 02/01/24 14:24 75 97 02/01/24 14:19 80 99 02/01/24 14:14 83 99 02/01/24 13:03 20 04/19/24 11:03 80 124/70 02/01/24 11:00 99.0 F 80 16 124/70 Pain Intensity Lower Medial Back: Pain Intensity: 2 Transfer of Care Handoff Completed per policy Notes Mental Status: alert / awake / arousable and participated in evaluation Patient Amnestic to Procedure: No Nausea / Vomiting: adequately controlled Pain: adequately controlled Airway Patency, RR, SpO2: stable & adequate BP & HR: stable & adequate Hydration State: stable & adequate Neuraxial Anesthesia: was administered and sensory block is resolving Anesthetic Complications: no major complications apparent and Pt Satisfied with anesthetic care
--- NOTE | 2024-02-02 02:23 | Anesthesia Procedure Note ---
Date of Service February 02, 2024 Anesthesia Post Epidural Note Vital Signs Vital Signs: Temp Pulse Resp BP Pulse Ox 99.0 F 102 H 18 98/53 L 99 02/02/24 01:45 02/02/24 02:18 02/02/24 01:55 02/02/24 02:15 02/02/24 02:18 Pain Intensity Lower Medial Back: Pain Intensity: 2 Notes Mental Status: alert / awake / arousable and participated in evaluation Nausea / Vomiting: adequately controlled Pain: adequately controlled Airway Patency, RR, SpO2: stable & adequate BP & HR: stable & adequate Hydration State: stable & adequate Neuraxial Anesthesia: was administered and sensory block is resolving Anesthetic Complications: no major complications apparent and Pt Satisfied with anesthetic care Epidural: Removed without complications and With tip intact
[2024-02-02] MEDS ORDERED: SODIUM CHLORIDE 0.9% 250 ML IV PRN ×4 (02:51→23:57)
--- NOTE | 2024-02-02 03:05 | Communication Note ---
Date of Service: February 02, 2024 I was called for "BP 60/31." Came immediately to patient room. Patient reportedly was feeling normal, talking, and then began to feel acutely unwell. She had nausea and presyncope and was noted to take on a pale appearance. BP was then noted to have dropped from 100s/50s to the tamika of 60/31. At the same time her pulse, which had been 90-110, dropped to 50bpm. Lochia has been small, and incision has been c/d/i. On my arrival to the room patient was in R lateral decub. She was able to answer questions and said she was feeling a little better after sniffing an alcohol swab. Her face appeared pale, and BP was 80/44 with pulse of 84. A bedside ultrasound was performed which showed a contracted uterus with empty cavity, and did not show any significant free fluid in the abdomen. Fundus was firm below the umbilicus, and lochia was scant on the chux. Likely vagal event. Will get stat H&H to check for anemia, and continue to observe closely. Patient crossmatch for 2u also requested. IVF currently running, pitocin bag running, and patient is now feeling much better and requesting some juice which we will give.
[2024-02-02 03:44] LABS: Hematocrit (blood only) 26.6 % (37.0-47.0); Hemoglobin 8.4 g/dl (12.0-16.0)
--- NOTE | 2024-02-02 04:00 | Communication Note ---
Date of Service: February 02, 2024 Briefly: Patient with second episode of hypotension. I came to bedside and find her again pale, feels nausea. Awake, alert. Unable to get blood draw for previously requested H&H per RN; POC fingerstick blood was sent for this and did come back at 8.2 during the events documented here. Watters with 300cc of urine since she left the OR (adequate). Blue tinged. Lochia remains small. Bimanual exam with fundus firm, cervix with apparent laceration consistent with the location of the L cervical extension identified during , but no significant bleeding externally. At this point discussed that I must suspect and r/o internal bleeding, though she is feeling better as we talk. IV team called to place second large-bore and to obtain blood for testing. Blood bank called to send first 2u pRBC for transfusion, and massive transfusion protocol activated. Consented for ExLap, poss Hyster. She accepts. States she was not expecting further pregnancies, the baby just born was the only embryo they had. The shift supervisor film processing was notified, OR team was called, I personally spoke to Zeb and he is en route to OR, and Lynne has been called and has returned to hospital at time of this note. Currently awake, alert, 73/46, P110, Sat 100%
[2024-02-02] MEDS ORDERED: fentaNYL citrate PF 100 MCG/2 ML VIAL ONE (04:08)
[2024-02-02] MEDS: ceFAZolin 3,000 MG in DEXTROSE 5% 50 ML IV ONE (04:20)
[2024-02-02] MEDS ORDERED: ceFAZolin 330 MG/ML 1 GM VIAL ONE ×3 (04:51→06:14)
[2024-02-02] MEDS ORDERED: SUCCINYLCHOLINE CHLORIDE 20 MG/ML 10 ML VIAL IV ONE (04:51)
[2024-02-02] MEDS ORDERED: PROPOFOL IV EMULSION 10 MG/ML 20 ML VIAL IV ONE (04:51)
[2024-02-02] MEDS ORDERED: CALCIUM CHLORIDE 10% 10 ML SYR IV ONE (04:51)
[2024-02-02] MEDS ORDERED: ETOMIDATE 2 MG/ML 20 ML VIAL IV ONE (04:51)
[2024-02-02] MEDS ORDERED: ROCURONIUM BROMIDE 10 MG/ML 5 ML VIAL IV ONE (04:51)
--- NOTE | 2024-02-02 04:55 | Communication Note ---
Date of Service: February 02, 2024 Pt had emergent earlier this morning.Pt now presents for exploratory laparotomy for acute hemorrhagic anemia.
[2024-02-02] MEDS: FLOSEAL HEMOSTATIC MATRIX 10ML TOP ONE ×2 (05:02→05:58)
[2024-02-02] MEDS: ceFAZolin 2000MG 2,000 MG/15 ML SYR IV ONE (05:49)
[2024-02-02] MEDS ORDERED: ONDANSETRON INJ 2 MG/ML 2 ML VIAL ONE (05:52)
[2024-02-02] MEDS ORDERED: SUGAMMADEX SODIUM 200 MG/2 ML VIAL IV ONE (05:54)
[2024-02-02] MEDS: METHYLENE BLUE 0.5% 10 ML VIAL ONE (05:58)
[2024-02-02 06:20] LABS: Fibrinogen 327 mg/dl (184-400); Partial Thromboplastin Time 29 Seconds (21-31); Prothrombin Time 11.2 Seconds (9.0-12.0)
[2024-02-02 06:47] LABS: Basophils # (auto) 0.05 K/uL (0.00-0.20); Basophils % (auto) 0.2 %; Eosinophils # (auto) 0.04 K/uL (0.00-0.50); Eosinophils % (auto) 0.2 %; Hematocrit (blood only) 30.2 % (37.0-47.0); Hemoglobin 9.7 g/dl (12.0-16.0); Immature Granulocytes # (auto) 0.16 K/uL (0.01-0.20); Immature Granulocytes % (auto) 0.7 %; Lymphocytes # (auto) 1.08 K/uL (1.20-3.40); Lymphocytes % (auto) 4.9 %; Mean Corpuscular Hemoglobin 27.8 pg (25.0-34.0); Mean Corpuscular Hgb Conc 32.1 g/dL (32.0-36.0); Mean Corpuscular Volume 86.5 fL (80.0-100.0); Mean Platelet Volume 10.6 fL (9.4-12.4); Monocytes # (auto) 2.81 K/uL (0.11-0.59); Monocytes % (auto) 12.8 %; Neutrophils # (auto) 17.76 K/uL (1.40-6.50); Neutrophils % (auto) 81.2 %; Platelet Count 202 K/uL (130-400); RDW Coefficient of Variation 14.9 % (11.5-14.5); Red Blood Count 3.49 M/uL (4.20-5.40)
[2024-02-02 06:59] LABS: D Dimer 13680 ug/L FEU (0-500)
--- NOTE | 2024-02-02 07:28 | Operative Report ---
PG Post Operative Report Pre & Post Diagnosis Operation Date: 02/02/24 04:00 Pre-Op Diagnosis: Acute anemia Hypotension Suspected intra-abdominal bleeding Post-Op Diagnosis: L uterine artery bleeding, controlled s/p supracervical hysterectomy I identified the patient and participated in the time-out.: Yes Procedure Operation Date: 02/02/24 04:00 Actual Procedures Exploratory Laparotomy, Supracervical Abdominal Hysterectomy, Evacuation of hemoperitoneum Surgeon Thea Barrera MD Contracts Manager Lynne Estimated Blood Loss 1,500 Findings Consistent with Post-Op Diagnosis Specimens Uterine fundus Lower uterine segment Anesthesia Type L&D Only Epidural Exists Complications none Disposition Accompanied Patient To Recovery: Yes Disposition: L&D Description of Procedure The patient was brought emergently to OR6, anesthesia was established, Yellofin stirrups were applied and she was positioned in Low Lithotomy, she was prepped and draped in standard sterile fashion, and a hard timeout was taken. 3g Ancef was given. Initial exam vaginally was performed and showed a cervix with defect or laceration at the 12 to 1 o'clock location, which was hemostatic to the degree expected after having given (small lochia seen, no obvious active cervical bleeding). Attention was turned to the abdomen where the prior Pfannensteil incision was re-opened by cutting suture at each closed layer. Upon entry to the abdomen, clot and liquid blood were encountered and evacuated. An Gonzalo O- ring was placed initially for quick visualization. The site of bleeding was seen at the L side of the lower uterine segment, where a portion of the L extension repair appeared to have dehisced, and approximately a tsfm-jzvxre-thnok area of the L broad ligament appeared dilated with blood as well. Pressure was applied to the relevant area, while communication was provided by this surgeon in the OR to clearly identify additional needed equipment and check on patient status. At that time she was reported to me as critical but stable, pRBC and blood products were being given, and we requested a Bookwalter, pool suction, and additional relevant instruments and suture. The O-ring was removed and the Bookwalter was applied. The incision was extended in the midline, vertically, to the level of the umbilicus and the Bookwalter was set up to provide adequate visualization. The top of the uterus was grasped with a double-toothed tenaculum and elevated. A LigaSure was used to ligate the fallopian tubes at the cornua, the utero-ovarian ligaments bilaterally, and the round ligaments bilaterally. The Ligasure was then walked down the lateral aspect of the uterus on each side until we reached the level of the prior hysterotomy, which remained intact at the level of the transverse closure. Bovie electrocautery was used to amputate the fundus to allow better visualization of the pelvic gutters. In the process of ligating the pedicles on the L side, the broad ligament was entered and drained of the blood which had collected and clotted there. No active extravasation was seen in this space. Bleeding was still present from distal on the L side, at the site of the previously seen and repaired extension, which was noted to have opened up. The bladder was backfilled with methylene blue dyed saline to delineate its location, and then re-closure of the L extension proceeded. This greatly decr eased but did not fully stop the bleeding. A minor arteriole on the L approximately 1cm medial from the angle of the hysterotomy repair, and just below it, therefore likely representing a bladder pillar, was noted to be bleeding in pulsatile fashion and was ligated with pop-off vicryl figure of eight. At this point bleeding was minimal but not 100% done; there was a slow ooze from the L cervico-vaginal junction area. FloSeal and pressure were applied. Pressure was held, and another check in was done with anesthesia who reported the patient stable. Decision was made to excise slightly more of the uterine body, encompassing the transverse hysterotomy repair. It was hoped that this would complete the supracervical hysterectomy without leaving sufficient endometrial tissue to produce any significant menstrual bleeding after the patient's recovery. It also would allow another distal bite with the ligasure for more complete control of L side bleeding. Of note, a fully dilated cervix was present in this patient at the time of her hysterectomy, and although it had closed somewhat, it remained significantly effaced. Exact cervical vs lower uterine margins were accordingly difficult to identify. The stump of the cervix was closed with [id number] pop off 1-vicryl suture, using approximately 10 sutures to cross from R to L. The stump was hemostatic, and a very minimal ooze remained at the L lateral cervico-vaginal junction. This was addressed by palpating the lateral margin of the cervix, and placing a double ligature around the vascular bundle there with a pop-off vicryl, essentially a Jamin stitch. At this point, ooze ceased completely. The abdomen was copiously irrigated with warm saline, and suctioned clear with a pool sucker. FloSeal was once again applied (20cc) to the L cervico-vaginal junction, within the bladder flap area, over the re-closed L extension, and into the space within the L broad ligament from which clot had been evacuated. Pressure was held. After one minute, observation of the area was performed for a full minute, with the stump closure sutures elevated (on tension) and lowered (off tension). Complete hemostasis was witnessed. All sponges and retractors were removed, the cervical stump suture tails were cut long, and closure of the abdomen proceeded. Looped PDS was used to close the vertical midline extension in a mass-closure, Smead-Hassan fashion, down to the level of the transverse/Pfannensteil incision. A 1-vicryl was used in a running nonlocked fashion to close the Pfannensteil portion of her incision at the fascial layer. The subcutaneous tissue was copiously irrigated once the fascia was examined thoroughly and no defects were identified. 3-0 Chromic was used to close the subcutaneous tissue, and jake were used to close the skin. A telfa/gauze/ABD/medipore dressing was applied. The shirley was noted to be draining blue-tinged urine that was clearing nicely, with no red tint. A large Graves speculum was introduced vaginally and the cervix was examined by walking circumferentially around it using ring forceps. The entire external cervical os / edge was present, and although there was a residual defect at 12-1 o'clock at the level of the external os, it did not extend beyond the vaginal fornix and was hemostatic, thus not sutured. Cervical digital exam was performed by both surgeons with agreement that the case could be brought to completion at that point. The patient was transferred to ICU for her PACU care and will be kept for observation in ICU for today. Patient was counseled in ICU on the foregoing events. Patient's mother and the father of her baby were also counseled. Both Dr. Barrera and Dr. Batista were present for each of these counseling sessions, and patient / family each stated their questions were fully answered at this time. I attest to the content of the Intraoperative Record and any orders documented therein. Any exceptions are noted below. OB Procedure Charges 48085 C/S w/ Hyster
--- NOTE | 2024-02-02 08:12 | XRay Report ---
SINGLE VIEW PELVIS CLINICAL HISTORY: Abdominal surgery. Assess for retained foreign body. FINDINGS: 2 AP, portable, supine views of the lower abdomen and upper pelvis are obtained. No prior s tudies are available for comparison at the time of dictation. There is a nonobstructed abdominal cara l gas pattern. Skin clips project over the lower abdomen/pelvis. No radiodense foreign body is seen. A phlebolith is noted in the right hemipelvis. The bony structures appear intact. IMPRESSION: 1. There is no radiographic evidence of retained surgical instrument/foreign body. 2. Surgical clips project over the lower abdomen/pelvis. Electronically signed by: Trav Manning M.D. 02/02/2024 8:10 AM
[2024-02-02 08:44] LABS: Calcium 8.6 mg/dl (8.6-10.3); Creatinine Clr Calc Pharmacy 126.5 ml/min; Est GFR (Non-African American) 101.8 ml/min; Potassium 4.3 mmol/L (3.5-5.1)
--- NOTE | 2024-02-02 09:38 | Critical Care Consultation ---
Date of Consultation February 02, 2024 Assessment & Plan (1) Acute blood loss anemia: (2) Intra-abdominal bleeding: (3) Tachycardia: (4) Normal labor: Plan 38-year-old female presenting to the ICU due to due to acute blood loss anemia related to a left uterine artery bleed. Adequate hemostasis was achieved during surgery and the patient received several units of packed RBCs, FFP and platelets. She is now monitored in the ICU for the next 24 hours. Appreciate NOZZLE OPERATOR input. Pain control per the NOZZLE OPERATOR service is acetaminophen available 1000 mg every 8 hours and Dilaudid 0.25 mg every 4 hours. Patient receiving lactated Ringer's at a rate of 125 mL/h DOUGHNUT ICER recommendations. Follow urine output closely. Will recheck a CBC around noon. Anticipate transfer out of ICU tomorrow. History of Present Illness Reason for Consultation: Acute hemorrhage status post section Attending Physician: Thea Barrera MD History of Present Illness 38-year-old female with no significant past medical history aside from GERD gestational diabetes mellitus who presented to the ICU after undergoing a stat section and hysterectomy for ongoing bleeding. This evening the patient was found to have systolic blood pressures in the 60s over 30s. Patient was immediately evaluated by the NOZZLE OPERATOR surgeon the patient. Patient had several episodes of vagal response throughout the night and she was consented for an ex lap and possible hysterectomy. The patient was taken to the OR around 4 AM last night due to left uterine artery bleeding and a controlled super cervical hysterectomy. Blood loss was estimated to be 1500 mL. The patient ultimately received 3 bags of RBCs, 1 FFP and 1 unit of platelets. She is now in the ICU in stable condition. She remains tachycardic. She denies any chest pain or shortness of breath at present. Labs are remarkable for leukocytosis chemistries consistent with mild acidosis and hyponatremia. Glucose is mildly elevated to 144. Pelvic x-ray postoperatively revealed no retained surgical equipment. Surgical clips project over the lower abdomen/pelvis. Allergies Allergy/AdvReac Type Severity Reaction Status Date / Time benzonatate Allergy hives Verified 01/31/24 15:56 [From Tesbhavin Parsons] ciprofloxacin [From Cipro] AdvReac thrush Verified 01/31/24 15:56 Home Medications Medication Instructions Recorded Confirmed Type prenat.vits,chip,hkh-nkzr-esmqr 1 tab PO DAILY 08/04/19 02/01/24 History needle (disp) 25 gauge 25 gauge x #90 ea 10/13/22 01/31/24 Rx 1" (BD PrecisionGlide Non-Sterile) coenzyme Q10 100 mg capsule 100 mg PO DAILY 10/31/22 02/01/24 History (CoQ-10) fluoxetine 10 mg capsule (Prozac) 10 mg PO DAILY #90 caps 09/04/23 02/01/24 Rx breast pump #1 ea 11/15/23 01/31/24 Rx pantoprazole 20 mg tablet,delayed 20 mg PO DAILY #90 tabs 12/06/23 02/01/24 Rx release cyanocobalamin (vitamin B-12) 1,000 mcg subcut . MONTHLY #10 mL 12/10/23 02/01/24 Rx 1,000 mcg/mL injection solution levocetirizine 5 mg tablet (Xyzal) 5 mg PO DAILY 02/01/24 02/01/24 History Patient History Medical History (Updated 02/02/24 @ 09:36 by Dipak Boggs MD) Tachycardia Intra-abdominal bleeding Acute blood loss anemia GERD without esophagitis History of abnormal cervical Pap smear History of thyroid cyst Surgical History History of esophagogastroduodenoscopy (EGD) History of loop electrical excision procedure (LEEP) History of placement of ear tubes S/P cholecystectomy S/P wisdom tooth extraction Family History Grandfather (Paternal) Moises's disease Myocardial infarction Prostate cancer Grandmother (Paternal) Breast cancer Family/Other Breast cancer Father Colorectal cancer Denies family history of Ovarian cancer Social History (Updated 11/13/23 @ 09:01 by RKYSTYNA Callejas) Smoking Status: Former smoker Tobacco Type: Cigarettes and E-cigarettes / Vaping Age Quit Using Tobacco: 29; Cigarettes Per Day: 1/2 ppd- quit at 29; Second Hand Exposure: No; Do You Dip or Chew Tobacco: No; Hx Alcohol Use: No Hx Substance Use: No Preferred Language: Khmer Communication Ability: Effective Visual Impairment: No Limitations Hearing Ability: Normal Supervisor Cell Maintenance Required: No Beliefs That Will Affect Care: None marital status: single marital status details: Sravan (40) [phone] Current Living Situation: Spouse Current Living Situation Comment: Lives at home with Boyfriend Tera and 2 dogs. current occupational status: employed current occupation: consulting group analyst. How many Children do You have: 0 Other Information That Helps Us Care for You: No Feels Safe at Home: Yes Safety Concerns: Feels Safe At This Time Childhood Exposure to Second-Hand Smoke: No Diet: regular Diet Comment: regular caffeine: Yes (limiting ) during the past year weight has: remained stable Dental Care, Regularly: Yes Physical Activity Frequency: 3-4 Times per Week Seatbelt Use: always Sunscreen Use: Yes Assistive Devices: None Review of Systems Review of Systems: 10 point ROS negative unless noted elsew here Physical Exam Physical Exam: Constitutional: Patient appears to be of their stated age. Patient is in no apparent distress. Patient is well-developed. Eyes: Pupils are equal round and reactive to light. Conjunctivae are normal. Anicteric sclera. Ears nose, mouth and throat: Mallampati class 2. Normal posterior oropharynx. Uvula is midline. Neck: Trachea is midline. Visual inspection is normal. Respiratory: Clear to auscultation bilaterally. No use of accessory muscles. No significant clubbing noted. Cardiovascular: Regular rate and rhythm. No murmurs. No edema. Gastrointestinal: Abdomen tender to palpation. Suture lines noted. Active bowel sounds. Musculoskeletal: No cyanosis. Patient is able to move all extremities. Strength is 5 out of 5 in the upper and lower extremities. Skin: No rashes, warm dry and intact. Neurologic: No obvious focal neurological deficits seen. Psychiatric: Alert and oriented x3 with a euthymic affect. Results & Data Results & Data Vital Signs (Past 12 Hours) Vital Signs Temp Pulse Pulse Resp BP BP Pulse Ox 02/02/24 09:00 112 H 13 98 02/02/24 09:00 108/80 02/02/24 08:50 111 H 13 99 02/02/24 08:40 111 H 13 100 02/02/24 08:31 122 H 9 L 100 02/02/24 08:31 123/82 02/02/24 08:30 118 H 12 83 L 02/02/24 08:20 119 H 12 100 02/02/24 08:10 120 H 14 100 02/02/24 08:00 123/76 02/02/24 08:00 120 H 17 100 02/02/24 07:59 109 H 17 100 02/02/24 06:50 139 H 13 121/93 100 02/02/24 06:45 136 H 12 126/89 100 02/02/24 06:40 123 H 12 130/86 100 02/02/24 04:00 110 H 99 02/02/24 03:56 111 H 79/44 L 02/02/24 03:55 18 02/02/24 03:55 110 H 100 02/02/24 03:54 90 73/46 L 02/02/24 03:52 91 H 69/39 L 02/02/24 03:50 99 02/02/24 03:50 88 02/02/24 03:50 83 68/36 L 02/02/24 03:48 84 66/34 L 02/02/24 03:46 91 H 72/39 L 02/02/24 03:45 18 02/02/24 03:45 95 H 100 02/02/24 03:44 101 H 80/47 L 02/02/24 03:42 108 H 71/42 L 02/02/24 03:40 99 02/02/24 03:40 100 H 02/02/24 03:40 103 H 69/44 L 02/02/24 03:38 115 H 64/45 L 02/02/24 03:36 101 H 66/41 L 02/02/24 03:35 18 02/02/24 03:35 91 H 100 02/02/24 03:34 85 61/37 L 02/02/24 03:32 176 H 56/31 L 02/02/24 03:30 70 62/29 L 100 02/02/24 03:28 73 57/25 L 02/02/24 03:25 18 02/02/24 03:25 86 66/33 L 100 02/02/24 03:24 78 63/33 L 02/02/24 03:23 87 90 02/02/24 03:22 83 72/39 L 02/02/24 03:20 90 100 02/02/24 03:15 18 02/02/24 03:15 94 H 100 02/02/24 03:13 80 81/45 L 02/02/24 03:10 88 98 02/02/24 03:05 18 04/20/24 03:05 98 H 87/53 L 99 02/02/24 03:01 92 H 94 02/02/24 03:00 94 H 94 02/02/24 02:55 18 02/02/24 02:55 90 90/57 L 100 02/02/24 02:52 93 H 88/58 L 02/02/24 02:50 84 85/60 L 99 02/02/24 02:45 18 02/02/24 02:45 72 80/44 L 02/02/24 02:43 100 02/02/24 02:43 58 L 02/02/24 02:43 50 L 65/31 L 02/02/24 02:38 100 02/02/24 02:38 92 H 02/02/24 02:38 91 H 74/40 L 02/02/24 02:36 100 H 81/48 L 02/02/24 02:35 18 02/02/24 02:35 18 02/02/24 02:33 94 H 99 02/02/24 02:28 112 H 99 02/02/24 02:25 18 02/02/24 02:25 107 H 100/54 L 02/02/24 02:23 106 H 99 02/02/24 02:18 102 H 99 02/02/24 02:15 18 02/02/24 02:15 98 H 98/53 L 02/02/24 02:13 104 H 100 02/02/24 02:08 100 02/02/24 02:08 99 H 02/02/24 02:08 102 H 103/57 L 02/02/24 02:05 18 02/02/24 02:03 97 H 100 02/02/24 01:58 99 H 105/55 L 99 02/02/24 01:55 18 02/02/24 01:55 18 02/02/24 01:53 101 H 99 02/02/24 01:48 99 02/02/24 01:48 103 H 02/02/24 01:48 102 H 107/53 L 02/02/24 01:45 18 02/02/24 01:45 37.2 C 18 02/02/24 01:43 105 H 107/50 L 99 02/02/24 01:38 101 H 100 02/02/24 01:35 101 H 105/51 L 02/02/24 01:33 103 H 100 02/02/24 00:14 101 H 97 02/02/24 00:09 103 H 97 02/02/24 00:04 97 H 143/78 H 97 02/01/24 23:59 100 H 97 02/01/24 23:54 93 H 97 02/01/24 23:49 100 H 99 02/01/24 23:44 96 H 99 02/01/24 23:39 104 H 98 02/01/24 23:34 102 H 141/76 H 98 02/01/24 23:29 89 99 02/01/24 23:24 94 H 99 02/01/24 23:20 99 H 133/85 02/01/24 23:19 102 H 99 02/01/24 23:14 100 H 94 02/01/24 23:09 86 98 02/01/24 23:05 100 H 134/62 91 02/01/24 23:04 104 H 97 02/01/24 22:59 106 H 93 02/01/24 22:54 84 98 02/01/24 22:53 102 H 91 02/01/24 22:50 104 H 170/89 H 02/01/24 22:49 106 H 98 02/01/24 22:48 37.5 C 02/01/24 22:47 106 H 89 L 02/01/24 22:44 80 98 02/01/24 22:39 105 H 87 L 02/01/24 22:35 74 120/59 L 02/01/24 22:34 78 98 02/01/24 22:29 80 99 02/01/24 22:24 115 H 92 02/01/24 22:20 78 115/57 L 02/01/24 22:19 96 H 92 02/01/24 22:14 99 02/01/24 22:14 86 02/01/24 22:14 100 H 92 02/01/24 22:09 80 99 02/01/24 22:07 107 H 88 L 02/01/24 22:04 87 120/60 98 02/01/24 21:59 95 H 98 02/01/24 21:57 105 H 92 02/01/24 21:54 83 99 02/01/24 21:51 89 02/01/24 21:51 103 H 143/64 H 93 02/01/24 21:49 90 100 02/01/24 21:44 96 H 100 02/01/24 21:39 83 100 02/01/24 21:36 109 H 92 02/01/24 21:34 102 H 139/65 98 02/01/24 21:29 88 100 02/01/24 21:28 99 H 89 L O2 Del Method O2 Flow Rate 02/02/24 09:00 02/02/24 09:00 02/02/24 08:50 02/02/24 08:40 02/02/24 08:31 02/02/24 08:31 02/02/24 08:30 02/02/24 08:20 02/02/24 08:10 02/02/24 08:00 02/02/24 08:00 02/02/24 07:59 02/02/24 06:50 Nasal Cannula 2 02/02/24 06:45 Oxymask 6 02/02/24 06:40 Oxymask 6 02/02/24 04:00 02/02/24 03:56 02/02/24 03:55 02/02/24 03:55 02/02/24 03:54 02/02/24 03:52 02/02/24 03:50 02/02/24 03:50 02/02/24 03:50 02/02/24 03:48 02/02/24 03:46 02/02/24 03:45 02/02/24 03:45 02/02/24 03:44 02/02/24 03:42 02/02/24 03:40 02/02/24 03:40 02/02/24 03:40 02/02/24 03:38 02/02/24 03:36 02/02/24 03:35 02/02/24 03:35 02/02/24 03:34 02/02/24 03:32 02/02/24 03:30 02/02/24 03:28 02/02/24 03:25 02/02/24 03:25 02/02/24 03:24 02/02/24 03:23 02/02/24 03:22 02/02/24 03:20 02/02/24 03:15 02/02/24 03:15 02/02/24 03:13 02/02/24 03:10 02/02/24 03:05 02/02/24 03:05 02/02/24 03:01 02/02/24 03:00 02/02/24 02:55 02/02/24 02:55 02/02/24 02:52 02/02/24 02:50 02/02/24 02:45 02/02/24 02:45 02/02/24 02:43 02/02/24 02:43 02/02/24 02:43 02/02/24 02:38 02/02/24 02:38 02/02/24 02:38 02/02/24 02:36 02/02/24 02:35 02/02/24 02:35 02/02/24 02:33 02/02/24 02:28 02/02/24 02:25 02/02/24 02:25 02/02/24 02:23 02/02/24 02:18 02/02/24 02:15 02/02/24 02:15 02/02/24 02:13 02/02/24 02:08 02/02/24 02:08 02/02/24 02:08 02/02/24 02:05 02/02/24 02:03 02/02/24 01:58 02/02/24 01:55 02/02/24 01:55 02/02/24 01:53 02/02/24 01:48 02/02/24 01:48 02/02/24 01:48 02/02/24 01:45 02/02/24 01:45 02/02/24 01:43 02/02/24 01:38 02/02/24 01:35 02/02/24 01:33 02/02/24 00:14 02/02/24 00:09 02/02/24 00:04 02/01/24 23:59 02/01/24 23:54 02/01/24 23:49 02/01/24 23:44 02/01/24 23:39 02/01/24 23:34 02/01/24 23:29 02/01/24 23:24 02/01/24 23:20 02/01/24 23:19 02/01/24 23:14 02/01/24 23:09 02/01/24 23:05 02/01/24 23:04 02/01/24 22:59 02/01/24 22:54 02/01/24 22:53 02/01/24 22:50 02/01/24 22:49 02/01/24 22:48 02/01/24 22:47 02/01/24 22:44 02/01/24 22:39 02/01/24 22:35 02/01/24 22:34 02/01/24 22:29 02/01/24 22:24 02/01/24 22:20 02/01/24 22:19 02/01/24 22:14 02/01/24 22:14 02/01/24 22:14 02/01/24 22:09 02/01/24 22:07 02/01/24 22:04 02/01/24 21:59 02/01/24 21:57 02/01/24 21:54 02/01/24 21:51 02/01/24 21:51 02/01/24 21:49 02/01/24 21:44 02/01/24 21:39 02/01/24 21:36 02/01/24 21:34 02/01/24 21:29 02/01/24 21:28 Coding Level of Care Code 31351 IN/OBS CONSULT LVL 4,60M Diagnoses Acute blood loss anemia D62 Intra-abdominal bleeding R58 Tachycardia R00.0 Normal labor O80; Z37.9
[2024-02-02] MEDS: MoRPHine SULFATE PF 1 MG/ML 10 ML AMP/VIAL EPI ONE (10:06)
[2024-02-02] MEDS: PANTOprazole 40 MG TAB PO SCH (10:30)
[2024-02-02] MEDS: FLUoxetine HCL 10 MG CAP PO SCH (10:30)
[2024-02-02] MEDS: CETIRIZINE HCL 10 MG TABLET PO SCH (10:30)
[2024-02-02] MEDS: DOCUSATE SODIUM 100 MG CAP PO SCH (10:30)
[2024-02-02] MEDS: PRENATAL VITAMIN 1 TAB PO SCH (11:49)
[2024-02-02] MEDS: FERROUS SULFATE 325 MG TAB PO SCH (11:49)
--- NOTE | 2024-02-02 12:41 | Anesthesiology Progress Note ---
Date of Service February 02, 2024 Anesthesia Post Procedure Vital Signs Vital Signs: Temp Pulse Pulse Resp BP BP Pulse Ox 02/02/24 09:40 120 H 14 100 02/02/24 09:30 120 H 16 98 02/02/24 09:30 112/94 02/02/24 09:20 120 H 17 100 02/02/24 09:10 117 H 12 99 02/02/24 09:00 112 H 13 98 02/02/24 09:00 108/80 02/02/24 08:50 111 H 13 99 02/02/24 08:40 111 H 13 100 02/02/24 08:31 122 H 9 L 100 02/02/24 08:31 123/82 02/02/24 08:30 118 H 12 83 L 02/02/24 08:20 119 H 12 100 02/02/24 08:10 120 H 14 100 02/02/24 08:00 123/76 02/02/24 08:00 120 H 17 100 02/02/24 07:59 109 H 17 100 02/02/24 06:50 139 H 13 121/93 100 02/02/24 06:45 136 H 12 126/89 100 02/02/24 06:40 123 H 12 130/86 100 02/02/24 04:00 110 H 99 02/02/24 03:56 111 H 79/44 L 02/02/24 03:55 18 02/02/24 03:55 110 H 100 02/02/24 03:54 90 73/46 L 02/02/24 03:52 91 H 69/39 L 02/02/24 03:50 99 02/02/24 03:50 88 02/02/24 03:50 83 68/36 L 02/02/24 03:48 84 66/34 L 02/02/24 03:46 91 H 72/39 L 02/02/24 03:45 18 02/02/24 03:45 95 H 100 02/02/24 03:44 101 H 80/47 L 02/02/24 03:42 108 H 71/42 L 02/02/24 03:40 99 02/02/24 03:40 100 H 02/02/24 03:40 103 H 69/44 L 02/02/24 03:38 115 H 64/45 L 02/02/24 03:36 101 H 66/41 L 02/02/24 03:35 18 02/02/24 03:35 91 H 100 02/02/24 03:34 85 61/37 L 02/02/24 03:32 176 H 56/31 L 02/02/24 03:30 70 62/29 L 100 02/02/24 03:28 73 57/25 L 02/02/24 03:25 18 02/02/24 03:25 86 66/33 L 100 02/02/24 03:24 78 63/33 L 02/02/24 03:23 87 90 02/02/24 03:22 83 72/39 L 02/02/24 03:20 90 100 02/02/24 03:15 18 02/02/24 03:15 94 H 100 02/02/24 03:13 80 81/45 L 02/02/24 03:10 88 98 02/02/24 03:05 18 02/02/24 03:05 98 H 87/53 L 99 02/02/24 03:01 92 H 94 02/02/24 03:00 94 H 94 02/02/24 02:55 18 02/02/24 02:55 90 90/57 L 100 02/02/24 02:52 93 H 88/58 L 02/02/24 02:50 84 85/60 L 99 02/02/24 02:45 18 02/02/24 02:45 72 80/44 L 02/02/24 02:43 100 02/02/24 02:43 58 L 02/02/24 02:43 50 L 65/31 L 02/02/24 02:38 100 02/02/24 02:38 92 H 02/02/24 02:38 91 H 74/40 L 02/02/24 02:36 100 H 81/48 L 02/02/24 02:35 18 02/02/24 02:35 18 02/02/24 02:33 94 H 99 02/02/24 02:28 112 H 99 02/02/24 02:25 18 02/02/24 02:25 107 H 100/54 L 02/02/24 02:23 106 H 99 02/02/24 02:18 102 H 99 02/02/24 02:15 18 02/02/24 02:15 98 H 98/53 L 02/02/24 02:13 104 H 100 02/02/24 02:08 100 02/02/24 02:08 99 H 02/02/24 02:08 102 H 103/57 L 02/02/24 02:05 18 02/02/24 02:03 97 H 100 02/02/24 01:58 99 H 105/55 L 99 02/02/24 01:55 18 02/02/24 01:55 18 02/02/24 01:53 101 H 99 02/02/24 01:48 99 02/02/24 01:48 103 H 02/02/24 01:48 102 H 107/53 L 02/02/24 01:45 18 02/02/24 01:45 99.0 F 18 02/02/24 01:43 105 H 107/50 L 99 02/02/24 01:38 101 H 100 02/02/24 01:35 101 H 105/51 L 02/02/24 01:33 103 H 100 02/02/24 00:14 101 H 97 02/02/24 00:09 103 H 97 02/02/24 00:04 97 H 143/78 H 97 02/01/24 23:59 100 H 97 02/01/24 23:54 93 H 97 02/01/24 23:49 100 H 99 02/01/24 23:44 96 H 99 02/01/24 23:39 104 H 98 02/01/24 23:34 102 H 141/76 H 98 02/01/24 23:29 89 99 02/01/24 23:24 94 H 99 02/01/24 23:20 99 H 133/85 02/01/24 23:19 102 H 99 02/01/24 23:14 100 H 94 02/01/24 23:09 86 98 02/01/24 23:05 100 H 134/62 91 02/01/24 23:04 104 H 97 02/01/24 22:59 106 H 93 02/01/24 22:54 84 98 02/01/24 22:53 102 H 91 02/01/24 22:50 104 H 170/89 H 02/01/24 22:49 106 H 98 02/01/24 22:48 99.5 F 02/01/24 22:47 106 H 89 L 02/01/24 22:44 80 98 02/01/24 22:39 105 H 87 L 02/01/24 22:35 74 120/59 L 02/01/24 22:34 78 98 02/01/24 22:29 80 99 02/01/24 22:24 115 H 92 02/01/24 22:20 78 115/57 L 02/01/24 22:19 96 H 92 02/01/24 22:14 99 02/01/24 22:14 86 02/01/24 22:14 100 H 92 02/01/24 22:09 80 99 02/01/24 22:07 107 H 88 L 02/01/24 22:04 87 120/60 98 02/01/24 21:59 95 H 98 02/01/24 21:57 105 H 92 02/01/24 21:54 83 99 02/01/24 21:51 89 02/01/24 21:51 103 H 143/64 H 93 02/01/24 21:49 90 100 02/01/24 21:44 96 H 100 02/01/24 21:39 83 100 02/01/24 21:36 109 H 92 02/01/24 21:34 102 H 139/65 98 02/01/24 21:29 88 100 02/01/24 21:28 99 H 89 L 02/01/24 21:24 92 H 100 02/01/24 21:22 116 H 82 L 02/01/24 21:19 100 02/01/24 21:19 101 H 02/01/24 21:19 93 H 142/70 H 02/01/24 21:14 101 H 99 02/01/24 21:10 108 H 90 02/01/24 21:09 108 H 97 02/01/24 21:05 93 H 134/66 02/01/24 21:04 125 H 100 02/01/24 21:00 114 H 89 L 02/01/24 20:59 107 H 99 02/01/24 20:54 116 H 92 02/01/24 20:49 86 L 02/01/24 20:49 94 H 02/01/24 20:49 92 H 90 02/01/24 20:44 89 99 02/01/24 20:43 122 H 91 02/01/24 20:39 102 H 99 02/01/24 20:36 108 H 131/69 0419/24 20:34 109 H 100 02/01/24 20:29 99 H 99 02/01/24 20:24 107 H 99 02/01/24 20:21 86 135/63 02/01/24 20:19 99 H 99 02/01/24 20:14 91 H 99 02/01/24 20:09 98 H 100 02/01/24 20:05 93 H 170/71 H 02/01/24 20:04 105 H 98 02/01/24 20:03 118 H 93 02/01/24 19:59 103 H 100 02/01/24 19:54 119 H 100 02/01/24 19:53 98 H 91 02/01/24 19:51 100 H 145/82 H 02/01/24 19:49 88 100 02/01/24 19:44 91 H 99 02/01/24 19:39 102 H 100 02/01/24 19:34 92 H 127/62 100 02/01/24 19:29 83 100 02/01/24 19:24 127 H 98 02/01/24 19:19 88 125/57 L 100 02/01/24 19:14 92 H 100 02/01/24 19:12 18 02/01/24 19:12 99.9 F H 18 02/01/24 19:09 87 100 02/01/24 19:04 99 02/01/24 19:04 93 H 02/01/24 19:04 95 H 132/63 02/01/24 18:59 88 100 02/01/24 18:54 99 H 18 99 02/01/24 18:49 94 H 131/59 L 99 02/01/24 18:44 95 H 99 02/01/24 18:39 84 99 02/01/24 18:35 96 H 142/70 H 02/01/24 18:34 92 H 100 02/01/24 18:29 92 H 99 02/01/24 18:24 86 99 02/01/24 18:19 82 126/65 100 02/01/24 18:14 93 H 100 02/01/24 18:09 92 H 100 02/01/24 18:04 89 138/75 100 02/01/24 17:59 93 H 99 02/01/24 17:54 18 100 02/01/24 17:54 86 02/01/24 17:54 86 92 02/01/24 17:50 83 126/61 02/01/24 17:49 86 100 02/01/24 17:44 83 100 02/01/24 17:39 93 H 99 02/01/24 17:35 88 127/69 02/01/24 17:34 88 100 02/01/24 17:30 100 H 92 02/01/24 17:29 89 99 02/01/24 17:24 90 100 02/01/24 17:21 85 131/72 02/01/24 17:19 82 100 02/01/24 17:14 83 100 02/01/24 17:09 82 99 02/01/24 17:04 99 02/01/24 17:04 93 H 02/01/24 17:04 90 127/58 L 02/01/24 17:00 97.5 F L 82 113/77 02/01/24 16:59 86 100 02/01/24 16:54 92 H 18 100 02/01/24 16:53 95 H 128/60 02/01/24 16:49 103 H 135/60 100 02/01/24 16:44 92 H 100 02/01/24 16:43 93 H 116/69 02/01/24 16:39 85 18 99 02/01/24 16:38 81 113/55 L 02/01/24 16:34 81 98 02/01/24 16:33 88 106/56 L 02/01/24 16:29 80 98 02/01/24 16:28 77 103/55 L 02/01/24 16:24 98 02/01/24 16:24 76 02/01/24 16:24 81 18 108/54 L 02/01/24 16:19 84 98 02/01/24 16:18 87 108/56 L 02/01/24 16:14 77 98 02/01/24 16:13 85 111/54 L 02/01/24 16:09 79 100 02/01/24 16:08 73 18 113/56 L 02/01/24 16:04 99 02/01/24 16:04 77 02/01/24 16:04 75 115/59 L 02/01/24 15:59 100 02/01/24 15:59 78 02/01/24 15:59 75 120/55 L 02/01/24 15:54 77 100 02/01/24 15:53 75 18 118/66 02/01/24 15:49 82 20 116/55 L 100 02/01/24 15:44 81 18 115/53 L 100 02/01/24 15:39 79 18 100/52 L 99 02/01/24 15:34 82 100 02/01/24 15:33 80 18 112/55 L 02/01/24 15:29 73 100 02/01/24 15:28 75 113/58 L 02/01/24 15:24 73 100 02/01/24 15:22 81 118/56 L 02/01/24 15:20 76 115/56 L 02/01/24 15:19 100 02/01/24 15:19 81 02/01/24 15:19 77 112/55 L 02/01/24 15:17 76 90/48 L 02/01/24 15:15 82 02/01/24 15:15 94/50 L 02/01/24 15:15 100 H 89/50 L 02/01/24 15:14 80 100 02/01/24 15:13 85 99/46 L 02/01/24 15:11 87 109/56 L 02/01/24 15:09 89 97 02/01/24 15:08 80 129/61 02/01/24 15:06 86 129/59 L 02/01/24 15:04 88 125/64 98 02/01/24 15:02 78 124/58 L 02/01/24 15:00 98.1 F 88 128/60 02/01/24 14:59 100 H 99 02/01/24 14:58 88 136/61 02/01/24 14:54 109 H 87 L 02/01/24 14:49 82 99 02/01/24 14:46 95 H 88 L 02/01/24 14:44 79 97 02/01/24 14:39 88 99 02/01/24 14:34 107 H 98 02/01/24 14:29 75 97 02/01/24 14:24 75 97 02/01/24 14:19 80 99 02/01/24 14:14 83 99 02/01/24 13:03 20 O2 Del Method O2 Flow Rate 02/02/24 09:40 02/02/24 09:30 02/02/24 09:30 02/02/24 09:20 02/02/24 09:10 02/02/24 09:00 02/02/24 09:00 02/02/24 08:50 02/02/24 08:40 02/02/24 08:31 02/02/24 08:31 02/02/24 08:30 02/02/24 08:20 02/02/24 08:10 02/02/24 08:00 02/02/24 08:00 02/02/24 07:59 02/02/24 06:50 Nasal Cannula 2 02/02/24 06:45 Oxymask 6 02/02/24 06:40 Oxymask 6 02/02/24 04:00 02/02/24 03:56 02/02/24 03:55 02/02/24 03:55 02/02/24 03:54 02/02/24 03:52 02/02/24 03:50 02/02/24 03:50 02/02/24 03:50 02/02/24 03:48 02/02/24 03:46 02/02/24 03:45 02/02/24 03:45 02/02/24 03:44 02/02/24 03:42 02/02/24 03:40 02/02/24 03:40 02/02/24 03:40 02/02/24 03:38 02/02/24 03:36 02/02/24 03:35 02/02/24 03:35 02/02/24 03:34 02/02/24 03:32 02/02/24 03:30 02/02/24 03:28 02/02/24 03:25 02/02/24 03:25 02/02/24 03:24 02/02/24 03:23 02/02/24 03:22 02/02/24 03:20 02/02/24 03:15 02/02/24 03:15 02/02/24 03:13 02/02/24 03:10 02/02/24 03:05 02/02/24 03:05 02/02/24 03:01 02/02/24 03:00 02/02/24 02:55 02/02/24 02:55 02/02/24 02:52 02/02/24 02:50 02/02/24 02:45 02/02/24 02:45 02/02/24 02:43 02/02/24 02:43 02/02/24 02:43 02/02/24 02:38 02/02/24 02:38 02/02/24 02:38 02/02/24 02:36 02/02/24 02:35 02/02/24 02:35 02/02/24 02:33 02/02/24 02:28 02/02/24 02:25 02/02/24 02:25 02/02/24 02:23 02/02/24 02:18 02/02/24 02:15 02/02/24 02:15 02/02/24 02:13 02/02/24 02:08 02/02/24 02:08 02/02/24 02:08 02/02/24 02:05 02/02/24 02:03 02/02/24 01:58 02/02/24 01:55 02/02/24 01:55 02/02/24 01:53 02/02/24 01:48 02/02/24 01:48 02/02/24 01:48 02/02/24 01:45 02/02/24 01:45 02/02/24 01:43 02/02/24 01:38 02/02/24 01:35 02/02/24 01:33 02/02/24 00:14 02/02/24 00:09 02/02/24 00:04 02/01/24 23:59 02/01/24 23:54 02/01/24 23:49 02/01/24 23:44 02/01/24 23:39 02/01/24 23:34 02/01/24 23:29 02/01/24 23:24 02/01/24 23:20 02/01/24 23:19 02/01/24 23:14 02/01/24 23:09 02/01/24 23:05 02/01/24 23:04 02/01/24 22:59 02/01/24 22:54 02/01/24 22:53 02/01/24 22:50 02/01/24 22:49 02/01/24 22:48 02/01/24 22:47 02/01/24 22:44 02/01/24 22:39 02/01/24 22:35 02/01/24 22:34 02/01/24 22:29 02/01/24 22:24 02/01/24 22:20 02/01/24 22:19 02/01/24 22:14 02/01/24 22:14 02/01/24 22:14 02/01/24 22:09 02/01/24 22:07 02/01/24 22:04 02/01/24 21:59 02/01/24 21:57 02/01/24 21:54 02/01/24 21:51 02/01/24 21:51 02/01/24 21:49 02/01/24 21:44 02/01/24 21:39 02/01/24 21:36 02/01/24 21:34 02/01/24 21:29 02/01/24 21:28 02/01/24 21:24 02/01/24 21:22 02/01/24 21:19 02/01/24 21:19 02/01/24 21:19 02/01/24 21:14 02/01/24 21:10 02/01/24 21:09 02/01/24 21:05 02/01/24 21:04 02/01/24 21:00 02/01/24 20:59 02/01/24 20:54 02/01/24 20:49 02/01/24 20:49 02/01/24 20:49 02/01/24 20:44 02/01/24 20:43 02/01/24 20:39 02/01/24 20:36 02/01/24 20:34 02/01/24 20:29 02/01/24 20:24 02/01/24 20:21 02/01/24 20:19 02/01/24 20:14 02/01/24 20:09 02/01/24 20:05 02/01/24 20:04 02/01/24 20:03 02/01/24 19:59 02/01/24 19:54 02/01/24 19:53 02/01/24 19:51 02/01/24 19:49 02/01/24 19:44 02/01/24 19:39 02/01/24 19:34 02/01/24 19:29 02/01/24 19:24 02/01/24 19:19 02/01/24 19:14 02/01/24 19:12 02/01/24 19:12 02/01/24 19:09 02/01/24 19:04 02/01/24 19:04 02/01/24 19:04 02/01/24 18:59 02/01/24 18:54 02/01/24 18:49 02/01/24 18:44 02/01/24 18:39 02/01/24 18:35 02/01/24 18:34 02/01/24 18:29 02/01/24 18:24 02/01/24 18:19 02/01/24 18:14 02/01/24 18:09 02/01/24 18:04 02/01/24 17:59 02/01/24 17:54 02/01/24 17:54 02/01/24 17:54 02/01/24 17:50 02/01/24 17:49 02/01/24 17:44 02/01/24 17:39 02/01/24 17:35 02/01/24 17:34 02/01/24 17:30 02/01/24 17:29 02/01/24 17:24 02/01/24 17:21 02/01/24 17:19 02/01/24 17:14 02/01/24 17:09 02/01/24 17:04 02/01/24 17:04 02/01/24 17:04 02/01/24 17:00 02/01/24 16:59 02/01/24 16:54 02/01/24 16:53 02/01/24 16:49 02/01/24 16:44 02/01/24 16:43 02/01/24 16:39 02/01/24 16:38 02/01/24 16:34 02/01/24 16:33 02/01/24 16:29 02/01/24 16:28 02/01/24 16:24 02/01/24 16:24 02/01/24 16:24 02/01/24 16:19 02/01/24 16:18 02/01/24 16:14 02/01/24 16:13 02/01/24 16:09 02/01/24 16:08 02/01/24 16:04 02/01/24 16:04 02/01/24 16:04 02/01/24 15:59 02/01/24 15:59 02/01/24 15:59 02/01/24 15:54 02/01/24 15:53 02/01/24 15:49 02/01/24 15:44 02/01/24 15:39 02/01/24 15:34 02/01/24 15:33 02/01/24 15:29 02/01/24 15:28 02/01/24 15:24 02/01/24 15:22 02/01/24 15:20 02/01/24 15:19 02/01/24 15:19 02/01/24 15:19 02/01/24 15:17 02/01/24 15:15 02/01/24 15:15 02/01/24 15:15 02/01/24 15:14 02/01/24 15:13 02/01/24 15:11 02/01/24 15:09 02/01/24 15:08 02/01/24 15:06 02/01/24 15:04 02/01/24 15:02 02/01/24 15:00 02/01/24 14:59 02/01/24 14:58 02/01/24 14:54 02/01/24 14:49 02/01/24 14:46 02/01/24 14:44 02/01/24 14:39 02/01/24 14:34 02/01/24 14:29 02/01/24 14:24 02/01/24 14:19 02/01/24 14:14 02/01/24 13:03 Pain Intensity Lower Medial Back: Pain Intensity: 2 Transfer of Care Handoff Completed per policy Notes Mental Status: alert / awake / arousable and participated in evaluation Patient Amnestic to Procedure: Yes Nausea / Vomiting: adequately controlled Pain: adequately controlled Airway Patency, RR, SpO2: stable & adequate BP & HR: stable & adequate Hydration State: stable & adequate Anesthetic Complications: no major complications apparent and Pt Satisfied with anesthetic care
[2024-02-02] MEDS: SIMETHICONE 80 MG CHEW PO SCH (12:50)
[2024-02-02 14:44] LABS: Hematocrit (blood only) 24.1 % (37.0-47.0); Hemoglobin 8.1 g/dl (12.0-16.0); Mean Corpuscular Hemoglobin 27.8 pg (25.0-34.0); Mean Corpuscular Hgb Conc 33.6 g/dL (32.0-36.0); Mean Corpuscular Volume 82.8 fL (80.0-100.0); Mean Platelet Volume 10.5 fL (9.4-12.4); Platelet Count 181 K/uL (130-400); RDW Coefficient of Variation 14.6 % (11.5-14.5); RDW Standard Deviation 43.4 fL (36.4-46.3); Red Blood Count 2.91 M/uL (4.20-5.40); White Blood Count 10.83 K/ul (4.8-10.8)
[2024-02-02] MEDS: diphenhydrAMINE 50 MG/ML VIAL IV PRN (15:36)
[2024-02-02] MEDS: oxyCODONE/ACETAMINOPHEN 5mg/325mg TAB PO STA (15:36)
--- NOTE | 2024-02-02 16:01 | Obstetrical Progress Note ---
Date of Service February 02, 2024 Assessment & Plan Admission and Anticipated Discharge Date Admission Date: February 01, 2024 Subjective Patient awake, sitting up in bed, talking. Working with manager mail on - has been able to collect collustrum. She has tolerated a small portion of a sandwich and is starting to feel the epidural wearing off with some pain, plans to take a percocet momentarily for pain. Urine output 250 over the past 9 hours, averaging to 27.7cc per hour. Urine is greenish d/t methylene blue given during . Watters remains in place. She has not been drinking a lot of fluids, she will increase PO hydration. Abdominal bandage has no blood, and no vaginal bleeding on exam. Abdomen is soft, nondistended. Mild postoperative tenderness. Reviewed labs with patient - Hgb 8.1. Suspect this is equilibrating after massive transfusion. Will plan for recheck of CBC tonight and again in AM. If stable, will plan for transfer out of ICU to tomorrow morning. Results & Data Vital Signs (Past 12 Hours) Vital Signs Pulse Pulse Resp BP BP Pulse Ox O2 Del Method 02/02/24 14:01 100/60 02/02/24 14:01 115 H 19 91 02/02/24 14:00 122 H 22 100 02/02/24 13:30 113/67 02/02/24 13:30 122 H 33 H 100 02/02/24 13:00 119/75 02/02/24 13:00 118 H 16 100 02/02/24 12:30 108/67 02/02/24 12:30 113 H 17 100 02/02/24 12:00 106/72 02/02/24 12:00 123 H 19 100 02/02/24 11:30 119 H 17 99 02/02/24 11:30 125/78 02/02/24 11:00 118/73 02/02/24 11:00 124 H 20 100 02/02/24 10:30 117/73 02/02/24 10:30 126 H 13 100 02/02/24 10:00 129 H 16 100 02/02/24 10:00 119/70 02/02/24 09:40 120 H 14 100 02/02/24 09:30 120 H 16 98 02/02/24 09:30 112/94 02/02/24 09:20 120 H 17 100 02/02/24 09:10 117 H 12 99 02/02/24 09:00 112 H 13 98 02/02/24 09:00 108/80 02/02/24 08:50 111 H 13 99 02/02/24 08:40 111 H 13 100 02/02/24 08:31 122 H 9 L 100 02/02/24 08:31 123/82 02/02/24 08:30 118 H 12 83 L 02/02/24 08:20 119 H 12 100 02/02/24 08:10 120 H 14 100 02/02/24 08:00 123/76 02/02/24 08:00 120 H 17 100 02/02/24 07:59 109 H 17 100 02/02/24 06:50 139 H 13 121/93 100 Nasal Cannula 02/02/24 06:45 136 H 12 126/89 100 Oxymask 02/02/24 06:40 123 H 12 130/86 100 Oxymask 02/02/24 04:00 110 H 99 O2 Flow Rate 02/02/24 14:01 02/02/24 14:01 02/02/24 14:00 02/02/24 13:30 02/02/24 13:30 02/02/24 13:00 02/02/24 13:00 02/02/24 12:30 02/02/24 12:30 02/02/24 12:00 02/02/24 12:00 02/02/24 11:30 02/02/24 11:30 02/02/24 11:00 02/02/24 11:00 02/02/24 10:30 02/02/24 10:30 02/02/24 10:00 02/02/24 10:00 02/02/24 09:40 02/02/24 09:30 02/02/24 09:30 02/02/24 09:20 02/02/24 09:10 02/02/24 09:00 02/02/24 09:00 02/02/24 08:50 02/02/24 08:40 02/02/24 08:31 02/02/24 08:31 02/02/24 08:30 02/02/24 08:20 02/02/24 08:10 02/02/24 08:00 02/02/24 08:00 02/02/24 07:59 02/02/24 06:50 2 02/02/24 06:45 6 02/02/24 06:40 6 02/02/24 04:00 PG Care Time/CCT Total # of Minutes Spent Total Time Spent with Patient: Total time spent is greater than 50% in coordination of care (as documented) at patient's floor/unit and/or counseling patient: Coding Level of Care Code None
[2024-02-02] MEDS ORDERED: diphenhydrAMINE 50 MG/ML VIAL IV PRN (18:53)
[2024-02-02] MEDS ORDERED: KETOROLAC 30 MG/ML VIAL IV PRN (18:53)
[2024-02-02] MEDS ORDERED: PROMETHAZINE HCL 25 MG in SODIUM CHLORIDE 0.9% 50 ML IV PRN (18:53)
[2024-02-02] MEDS: SODIUM CHLORIDE 0.9% 1,000 ML IV SCH ×2 (19:21)
[2024-02-02] MEDS: OXYTOCIN 30 UNITS/LR 1,003 ML IV SCH (19:22)
[2024-02-02] MEDS: oxyCODONE/ACETAMINOPHEN 5mg/325mg TAB PO PRN (21:06)
[2024-02-02 23:11] LABS: Hematocrit (blood only) 20.4 % (37.0-47.0); Hemoglobin 6.8 g/dl (12.0-16.0); Mean Corpuscular Hgb Conc 33.3 g/dL (32.0-36.0); Mean Platelet Volume 10.6 fL (9.4-12.4); Platelet Count 170 K/uL (130-400); RDW Coefficient of Variation 14.9 % (11.5-14.5); RDW Standard Deviation 45.4 fL (36.4-46.3); Red Blood Count 2.43 M/uL (4.20-5.40); White Blood Count 12.07 K/ul (4.8-10.8)
--- NOTE | 2024-02-03 00:31 | Obstetrical Progress Note ---
Date of Service February 03, 2024 Assessment & Plan Admission and Anticipated Discharge Date Admission Date: February 01, 2024 Subjective Patient evaluated at bedside - she is lying in bed, awake, talking. She is tearful, worried about Hgb drop. She has been able to tolerate PO fluids throughout the afternoon. Taking PO pain medications as needed. Biggest concern at this time is itching - itchy on her back where she is lying on chux pad and itchy on legs where SCDs are. She'd like to try some benadryl again to treat this and maybe get some rest. Abdomen with some distention - tender at incision, but no peritoneal signs. Able to palpate abdomen (not at incision) without tenderness. No bruising on flanks. No bleeding from incision. Scant vaginal blood. Discussed Hgb drop from 8.1 to 6.9. Suspect this drop is likely still postoperative stabilization rather than active bleeding. She has good urine output (100cc per hour over the past 2 hours), skin is pink, she is and making tears to cry. Will transfuse 2u PRBC at this time, reecheck Hgb in AM after transfusion and continue to monitor closely in ICU overnight. Results & Data Vital Signs (Past 12 Hours) Vital Signs Temp Pulse Resp BP Pulse Ox O2 Del Method 02/02/24 22:00 136/61 02/02/24 22:00 128 H 24 100 02/02/24 21:00 149/72 H 02/02/24 21:00 129 H 18 96 02/02/24 20:26 36.7 C 100 Room Air 02/02/24 20:13 117/72 02/02/24 20:13 124 H 19 02/02/24 20:00 119 H 17 02/02/24 19:00 116/57 L 02/02/24 19:00 126 H 20 02/02/24 14:01 100/60 02/02/24 14:01 115 H 19 91 02/02/24 14:00 122 H 22 100 02/02/24 13:30 113/67 02/02/24 13:30 122 H 33 H 100 02/02/24 13:00 119/75 02/02/24 13:00 118 H 16 100 02/02/24 12:30 108/67 02/02/24 12:30 113 H 17 100 PG Care Time/CCT Total # of Minutes Spent Total Time Spent with Patient: Total time spent is greater than 50% in coordination of care (as documented) at patient's floor/unit and/or counseling patient: Coding Level of Care Code None
[2024-02-03] MEDS: diphenhydrAMINE Capsule 25 MG CAP PO PRN (00:32)
[2024-02-03 07:59] LABS: Basophils # (auto) 0.05 K/uL (0.00-0.20); Basophils % (auto) 0.4 %; Eosinophils # (auto) 0.05 K/uL (0.00-0.50); Eosinophils % (auto) 0.4 %; Hematocrit (blood only) 24.1 % (37.0-47.0); Hemoglobin 8.3 g/dl (12.0-16.0); Immature Granulocytes # (auto) 0.15 K/uL (0.01-0.20); Immature Granulocytes % (auto) 1.1 %; Lymphocytes # (auto) 1.83 K/uL (1.20-3.40); Lymphocytes % (auto) 13.8 %; Mean Corpuscular Hemoglobin 28.6 pg (25.0-34.0); Mean Corpuscular Hgb Conc 34.4 g/dL (32.0-36.0); Mean Corpuscular Volume 83.1 fL (80.0-100.0); Mean Platelet Volume 10.5 fL (9.4-12.4); Monocytes # (auto) 1.86 K/uL (0.11-0.59); Neutrophils # (auto) 9.31 K/uL (1.40-6.50); Neutrophils % (auto) 70.3 %; Platelet Count 135 K/uL (130-400); RDW Coefficient of Variation 14.5 % (11.5-14.5); RDW Standard Deviation 43.3 fL (36.4-46.3); White Blood Count 13.25 K/ul (4.8-10.8)
[2024-02-03 08:17] LABS: BUN Creatinine Ratio 21.7 (10-20); Calcium 7.8 mg/dl (8.6-10.3); Creatinine Clr Calc Pharmacy 205.4 ml/min; Est GFR (African American) 147.3 ml/min; Est GFR (Non-African American) 127.1 ml/min; Magnesium 1.5 mg/dl (1.7-2.4); Phosphorus 2.4 mg/dl (2.5-4.9); Potassium 3.9 mmol/L (3.5-5.1)
[2024-02-03 08:21] LABS: Prothrombin Time 10.5 Seconds (9.0-12.0)
--- NOTE | 2024-02-03 09:38 | Obstetrical Progress Note ---
Date of Service February 03, 2024 Assessment & Plan (1) care following delivery: (2) hemorrhage: (3) History of hysterectomy, supracervical abdominal (subtotal): Plan POD# 1 s/p primary section, followed by intraabdominal bleeding, then supracervical hysterectomy. She received 3u PRBC, 1u cryo, 1u FFP, 1u platelets during surgery. She then received an additional 2u PRBC overnight last night after Hgb dropped from 8.1 to 6.9. This morning's post-transfusion Hgb is 8.3. On exam today, she is awake, sitting up in a chair, eating breakfast. Good urine output into [facility]ley. Has expected postoperative abdominal pain. Not passing gas. Is . States she is feeling better. Gen: AAOx3 no acute distress. Abd: some distension, no peritoneal signs. Dressing removed, incision clean/dry/intact, jake in place. Ext: 1+ edema Plan: Will move from ICU to unit. Will recheck Hgb at 2pm. Will begin to increase ambulation and continue to increase diet as tolerated. Continue . Results & Data Vital Signs (Past 12 Hours) Vital Signs Temp Pulse Resp BP Pulse Ox 02/03/24 08:08 36.8 C 02/03/24 08:00 118 H 15 100 02/03/24 08:00 124/62 02/03/24 07:45 123/71 02/03/24 07:45 118 H 17 100 02/03/24 07:30 132/52 L 02/03/24 07:30 108 H 17 100 02/03/24 07:15 101 H 17 97 02/03/24 07:15 119/56 L 02/03/24 07:05 103 H 17 98 02/03/24 07:05 122/63 02/03/24 07:05 36.6 C 104 H 18 122/63 98 02/03/24 07:00 118/58 L 02/03/24 07:00 100 H 17 97 02/03/24 06:45 116/58 L 02/03/24 06:45 101 H 17 97 02/03/24 06:30 117/56 L 02/03/24 06:30 103 H 18 98 02/03/24 06:18 36.6 C 98 H 18 113/60 98 02/03/24 06:15 95 H 16 98 02/03/24 06:15 113/60 02/03/24 06:00 115/59 L 02/03/24 06:00 99 H 19 98 02/03/24 05:18 36.7 C 106 H 18 113/53 L 96 02/03/24 05:00 118/57 L 02/03/24 05:00 104 H 18 98 02/03/24 04:48 36.7 C 104 H 18 113/52 L 97 02/03/24 04:33 36.6 C 107 H 18 111/53 L 100 02/03/24 04:33 36.6 C 107 H 18 111/53 L 97 02/03/24 04:14 36.8 C 106 H 18 112/60 98 02/03/24 04:00 103 H 17 97 02/03/24 04:00 112/57 L 02/03/24 03:57 36.7 C 104 H 18 112/57 L 97 02/03/24 03:52 36.7 C 103 H 18 111/61 98 02/03/24 03:00 109/50 L 02/03/24 03:00 112 H 18 96 02/03/24 03:00 36.8 C 02/03/24 02:52 36.8 C 110 H 16 109/51 L 96 02/03/24 02:00 113 H 17 96 02/03/24 02:00 110/54 L 02/03/24 01:52 37 C 118 H 18 110/54 L 96 02/03/24 01:23 37 C 120 H 18 121/56 L 100 02/03/24 01:22 36.9 C 121 H 18 126/58 L 97 02/03/24 01:07 37 C 120 H 18 121/56 L 100 02/03/24 01:00 124/61 02/03/24 01:00 123 H 21 99 02/03/24 00:51 36.6 C 109 H 16 119/48 L 99 02/03/24 00:24 127/56 L 02/03/24 00:24 36.6 C 123 H 16 127/56 L 100 02/03/24 00:00 118 H 02/03/24 00:00 113 H 20 100 02/02/24 23:00 115/73 02/02/24 23:00 132 H 18 100 02/02/24 22:00 136/61 02/02/24 22:00 128 H 24 100
[2024-02-03] MEDS: IBUPROFEN 600 MG TAB PO PRN (12:47)
[2024-02-03 14:40] LABS: Hematocrit (blood only) 24.4 % (37.0-47.0); Hemoglobin 8.6 g/dl (12.0-16.0); Mean Corpuscular Hemoglobin 29.1 pg (25.0-34.0); Mean Corpuscular Hgb Conc 35.2 g/dL (32.0-36.0); Mean Corpuscular Volume 82.4 fL (80.0-100.0); Mean Platelet Volume 10.4 fL (9.4-12.4); Platelet Count 149 K/uL (130-400); RDW Coefficient of Variation 14.7 % (11.5-14.5); RDW Standard Deviation 42.9 fL (36.4-46.3); Red Blood Count 2.96 M/uL (4.20-5.40); White Blood Count 14.38 K/ul (4.8-10.8)
[2024-02-03] MEDS: DIPHTHER/TETAN/PERTUS Vaccine (Tdap, Adol/Adult) 0.5mL IM ONE (19:37)
[2024-02-03] MEDS: bisacodyL 5 MG TABEC PO SCH (19:37)
[2024-02-04] MEDS ORDERED: bisacodyL 10 MG SUPP PR PRN
[2024-02-04 06:23] LABS: Basophils # (auto) 0.03 K/uL (0.00-0.20); Basophils % (auto) 0.2 %; Eosinophils # (auto) 0.28 K/uL (0.00-0.50); Eosinophils % (auto) 2.1 %; Hematocrit (blood only) 24.1 % (37.0-47.0); Hemoglobin 8.2 g/dl (12.0-16.0); Immature Granulocytes # (auto) 0.25 K/uL (0.01-0.20); Immature Granulocytes % (auto) 1.9 %; Lymphocytes # (auto) 2.22 K/uL (1.20-3.40); Mean Corpuscular Hemoglobin 28.7 pg (25.0-34.0); Mean Corpuscular Volume 84.3 fL (80.0-100.0); Mean Platelet Volume 10.3 fL (9.4-12.4); Monocytes # (auto) 1.32 K/uL (0.11-0.59); Monocytes % (auto) 10.1 %; Neutrophils # (auto) 8.98 K/uL (1.40-6.50); Neutrophils % (auto) 68.7 %; Platelet Count 157 K/uL (130-400); RDW Coefficient of Variation 15.3 % (11.5-14.5); RDW Standard Deviation 46.5 fL (36.4-46.3); Red Blood Count 2.86 M/uL (4.20-5.40); White Blood Count 13.08 K/ul (4.8-10.8)
--- NOTE | 2024-02-04 06:24 | Obstetrical Progress Note ---
Date of Service February 04, 2024 Assessment & Plan (1) History of hysterectomy, supracervical abdominal (subtotal): (2) hemorrhage: (3) care following delivery: Plan Doing well Encourage ambulation Pain control Admission and Anticipated Discharge Date Admission Date: February 01, 2024 Supervising Physician Co-Signing Physician Notes Resident Physician Supervision Note: I interviewed and examined the patient. Discussed with Dr. Galvan and agree with findings and plan as documented in the note. Any exceptions or clarifications are listed here: POD#2 s/p primary section and then supracervical hysterectomy. She is s/p 5u PRBC, 1u platelets, 1u FFP, 1u cryo. Hgb has stabilized, and she is up and moving today. Eating/drinking ok. Passing gas. Urinating. Breast feeding. In good spirits. Abdomen is mildly distended, incisions CDI, jake in place. She is aware to make an appointment for 10 days postop for staple removal. Anticipate DC home tomorrow. Continue routine postop care. Documented By: Yissel Batista, DO Subjective 38 yo post day 2 s/p complicated by intraabdominal bleeding, s/p supracervical hysterectomy. Ambulation: ambulating normally Voiding: no voiding problems Passing Gas:: Yes Diet Tolerance:: regular diet Lochia:: Small Feeding Type:: bottle feeding Current Pain Level: minimal Resting comfortably this AM in NAD. Denies PARISH, CP, SOB, N/V/D, LE pain/swelling. Review of Systems Review of Systems: reviewed, per HPI Physical Exam Physical Exam: General: patient resting comfortably, NAD, non-toxic in appearance, AA&O x 4, answers questions appropriately. Skin: warm, dry, intact HEENT: NC/AT, anicteric sclera, conjunctiva without injection, moist mucus membranes. Heart: +S1/S2, regular, no m/r/g Lungs: equal air entry bilaterally, no rales/rhonchi/wheezes Abd: +BS, soft, NT/ND, uterine fundus firm at umbilicus, caesarean incision C/D/I. Ext: warm, no clubbing/cyanosis or edema, Jesica's neg. Neuro: nonfocal, patient AA&O x 4, speech intact, no facial droop, moving all extremities on command. Results & Data Vital Signs (Past 12 Hours) Vital Signs Temp Pulse Resp BP Pulse Ox O2 Del Method 02/04/24 04:10 36.5 C 92 H 18 127/80 97 Room Air 02/03/24 22:45 36.5 C 98 H 20 109/63 96 Room Air 02/03/24 19:20 Room Air 02/03/24 19:20 36.5 C 95 H 18 111/68 99 Room Air Resident Activity Tracking Resident Involvement: Resident Care Provided Care Provided: Adult Hospital Medicine
--- NOTE | 2024-02-05 06:19 | Obstetrical Progress Note ---
Date of Service February 05, 2024 Assessment & Plan (1) History of hysterectomy, supracervical abdominal (subtotal): (2) hemorrhage: (3) care following delivery: Plan Doing well Encourage ambulation Pain control DC tomorrow Admission and Anticipated Discharge Date Admission Date: February 01, 2024 Supervising Physician Co-Signing Physician Notes Day 3 status post section followed by supracervical hysterectomy with hemorrhage. Denying any concerns today. Blood counts appear stable and patient is asymptomatic. Vitals within normal limits. Would like to stay another day and agree with plan due to complicated course. Subjective 38 yo post day 2 s/p complicated by intraabdominal bleeding, s/p supracervical hysterectomy. VSS, Hb 7.9 this am. Ambulation: ambulating normally Voiding: no voiding problems Passing Gas:: Yes Diet Tolerance:: regular diet Lochia:: Small Current Pain Level: minimal Resting comfortably this AM in NAD. Denies PARISH, CP, SOB, N/V/D. +b/l LE edema Desires dc tomorrow Review of Systems Review of Systems: reviewed, per HPI Physical Exam Physical Exam: General: patient resting comfortably, NAD, non-toxic in appearance, AA&O x 4, answers questions appropriately. Skin: warm, dry, intact HEENT: NC/AT, anicteric sclera, conjunctiva without injection, moist mucus membranes. Heart: +S1/S2, regular, no m/r/g Lungs: equal air entry bilaterally, no rales/rhonchi/wheezes Abd: +BS, soft, NT/ND, uterine fundus firm at umbilicus, caesarean incision C/D/I. Ext: warm, mild b/l symmetric LE edema, Jesica's neg. Neuro: nonfocal, speech intact, no facial droop, moving all extremities on command. Results & Data Vital Signs (Past 12 Hours) Vital Signs Temp Pulse Resp BP Pulse Ox O2 Del Method 02/05/24 01:21 103 H 14 130/76 98 Room Air 02/04/24 19:45 37.2 C 97 H 14 121/74 99 Room Air Resident Activity Tracking Resident Involvement: Resident Care Provided Care Provided: Adult [facility]
[2024-02-05 06:21] LABS: Basophils # (auto) 0.04 K/uL (0.00-0.20); Basophils % (auto) 0.4 %; Eosinophils % (auto) 3.8 %; Hematocrit (blood only) 24.6 % (37.0-47.0); Hemoglobin 7.9 g/dl (12.0-16.0); Immature Granulocytes # (auto) 0.21 K/uL (0.01-0.20); Lymphocytes # (auto) 2.43 K/uL (1.20-3.40); Lymphocytes % (auto) 22.8 %; Mean Corpuscular Hemoglobin 28.1 pg (25.0-34.0); Mean Corpuscular Hgb Conc 32.1 g/dL (32.0-36.0); Mean Corpuscular Volume 87.5 fL (80.0-100.0); Monocytes # (auto) 0.81 K/uL (0.11-0.59); Monocytes % (auto) 7.6 %; Neutrophils # (auto) 6.77 K/uL (1.40-6.50); Neutrophils % (auto) 63.4 %; Nucleated RBC # (auto) 0.04 K/uL (0.00-0.12); Nucleated RBC % (auto) 0.4 %; Platelet Count 181 K/uL (130-400); RDW Coefficient of Variation 15.4 % (11.5-14.5); RDW Standard Deviation 48.4 fL (36.4-46.3); Red Blood Count 2.81 M/uL (4.20-5.40); White Blood Count 10.66 K/ul (4.8-10.8)
[2024-02-05 06:48] LABS: Polychromasia 1+
--- NOTE | 2024-02-06 07:29 | Obstetrical Progress Note ---
Date of Service February 06, 2024 Assessment & Plan (1) care following delivery: satisfactory post-op course will discharge to home with percocet and Motrin scripts has appt for 02/10 for staple removal Subjective Ambulation: ambulating normally Voiding: no voiding problems Passing Gas:: Yes Diet Tolerance:: regular diet Lochia:: Small Feeding Type:: breast feeding pain well controlled no lightheadedness or dizziness Review of Systems All systems reviewed & are unremarkable except as noted in HPI & below Physical Exam Constitutional WD/WN, vitals as above Gastrointestinal (Abdomen) Inspection/Auscultation: + abdominal surgical incision (dry and intact- no erythema noted) Psychiatric A+Ox3, euthymic affect Results & Data Vital Signs (Past 12 Hours) Vital Signs Temp Pulse Resp BP Pulse Ox O2 Del Method 02/06/24 01:20 97.9 F 88 16 114/72 97 Room Air 02/05/24 20:10 98.2 F 88 18 128/75 100 Room Air
--- NOTE | 2024-02-08 09:17 | Discharge Summary ---
Date of Service February 08, 2024 Admission HPI Per Admitting Provider 38 y/o at 39 weeks confirmed. Here due to active labor. Complications with this include IVF, AMA, hyperthyroidism and GDM diet controlled. Has been attending OB appointments regularly. Currently taking no medications. GBS negative, Rubella Immune, BTG: B+ Contractions: every 7 min Fluid or Blood loss: blood tinged, unsure of fluid loss Movement: active FHR baseline 130, moderate variability, accelerations present, decelerations absent Lab Results OB Labs: Blood Type B Positive 07/13/23 Antibody Screen NEGATIVE 07/13/23 Hemoglobin 10.5 g/dl (12.0-16.0) L 11/24/23 Hematocrit 32.1 % (37.0-47.0) L 11/24/23 Mean Corpuscular Volume 83.5 fL (80.0-100.0) 07/13/23 Platelet Count 284 K/uL (130-400) 07/13/23 Rubella IgG Antibody Immune (Immune) 07/13/23 Rapid Plasma Reagin Nonreactive (Nonreactive) 07/13/23 Hepatitis B Surface Antigen. NON-REACTIVE (NON-REACTIVE) 07/13/23 Hepatitis C Antibody (EIA) NON-REACTIVE (NON-REACTIVE) 07/13/23 HIV (1&2) Ag and Ab Confirmation NON-REACTIVE (NON-REACTIVE) 07/13/23 Glucose 1 Hour 50 gm Load 158 mg/dl (70-130) H 08/24/23 OB Optional Labs: Chlamydia trachomatis RNA Not Detected (NotDetected) 07/13/23 Neisseria gonorrhoeae RNA Not Detected (NotDetected) 07/13/23 Thyroid Stimulating Hormone (TSH) 0.324 uIu/ml (0.300-4.500) 08/12/21 Discharge Data Consultations 02/01/24 10:23 Consult Anesthesiology Stat 02/01/24 23:42 Consult Anesthesiology Stat 02/02/24 08:04 Consult Financial Compliance Examiner Stat Procedures Performed Operation Date: 02/02/24 04:00 Actual Procedures p Exploratory Laparotomy, Supracervical Abdominal Hysterectomy(Not Applicable) - Thea Barrera MD Hospital Course (1) History of hysterectomy, supracervical abdominal (subtotal): Patient admitted in labor. Pushed 3 hours, then underwent section for failure to descend, with T-incision and L cervical extension. Hypotension post op due to intra-abdominal bleeding. Underwent emergent Ex-Lap with KAVYA, re- closure of L cervical extension, and transfusion of total 5u pRBC and 1u each FFP/Cryo/Plt. Held 24hr for ICU-level observation then moved to [facility] floor. Stable postop course. Discharged to home POD#4, with plan for staple removal POD#10. Coding Level of Care Code None Diagnoses History of hysterectomy, supracervical abdominal (subtotal) Z90.711
--- NOTE | 2024-02-20 08:24 | Coding Query ---
PATHOLOGY To promote full compliance with coding requirements relating to patient care, physician participation is requested in all cases of staking technician uncertainty. Please assist us with the question(s) below: Please review the Pathology report and please document any relevant diagnosis(es) below: Diagnosis(es): No changes - ectopic was present based on intraoperative / surgical findings. Thank you Nirmala ASIF
== END 2024-02-06 14:00 | disposition home or self-care (01) | DRG 786 ==
LOC: OPB 10:08 → 4S1 10:12 → 1E 02-02 07:23 → 4E2 02-03 12:07